=== PATIENT | male | born 1990 | race American Indian/Alaskan Native ===

== ENCOUNTER 2018-07-31 00:14 | Emergency (ER) | payer SELFPAY ==
[2018-07-31 02:42] VITALS: BP 119/77
--- NOTE | 2018-07-31 03:47 | Emergency Department Report ---
Chief Complaint: Urogenital-Male Stated Complaint: PENILE D/C Time Seen by Provider: 07/31/18 03:44 - HPI History of Present Illness: 28-year-old Afro-[place] male presents to the emergency room for complaint of penile discharge 2 days. She denies any fever chills, nausea vomiting, no abdominal pain. Patient port is sexually active unprotected with movement. - ROS Review of Systems: Penile discharge, dysuria - Exam Vital Signs: Vital Signs 07/31/18 02:41 Temperature 97.2 F L Pulse Rate 63 Respiratory 19 Rate Blood Pressure 119/77 O2 Sat by Pulse 99 Oximetry Physical Exam: Alert and oriented 3 no acute distress Cardiovascular S1 and S2 regular rate and rhythm Respiratory clear to auscultation bilateral Abdomen soft nontender nondistended MSE screening note: Focused history and physical exam performed. Due to findings the following was ordered: Patient is referred to the health department for testing and treatment as this is considered a nonmedical emergency examination is within normal limits for stabilization. ED Disposition for MSE Condition: Stable Referrals: PRIMARY CARE, [Primary Care Provider] - 3-5 Days
== END 2018-07-31 03:50 | disposition left against medical advice (07) ==
LOC: ED 00:14
DX: R36.9 Urethral discharge, unspecified (principal); Z53.21 Procedure and treatment not carried out due to patient leaving prior to being seen by health care provider
CPT/HCPCS: 99281

== ENCOUNTER 2019-02-01 02:17 | Emergency (ER) | payer SELFPAY ==
[2019-02-01 02:26] VITALS: BP 118/66
[2019-02-01] MEDS ORDERED: ZOFRAN IV ONE (02:58)
[2019-02-01] MEDS ORDERED: MORPHINE IV ONE (02:58)
[2019-02-01] MEDS ORDERED: NACL 0.9% 1000 ML 1,000 ML IV ONE (02:58)
[2019-02-01 03:02] LABS: Basophils % (Auto) 0.1 % (0.0-1.8); Eosinophils # (Auto) 0.1 K/mm3 (0.0-0.4); Eosinophils % (Auto) 0.9 % (0.0-4.3); Hematocrit 45.4 % (35.5-45.6); Hemoglobin 15.2 gm/dl (11.8-15.2); Lymphocytes # (Auto) 0.6 K/mm3 (1.2-5.4); Lymphocytes % (Auto) 5.5 % (13.4-35.0); Mean Corpuscular HGB Conc 34 % (32-34); Mean Corpuscular Hemoglobin 31 pg (28-32); Mean Corpuscular Volume 93 fl (84-94); Monocytes # (Auto) 0.7 K/mm3 (0.0-0.8); Monocytes % (Auto) 5.9 % (0.0-7.3); Platelet Count 330 K/mm3 (140-440); Red Blood Count 4.88 M/mm3 (3.65-5.03); Red Cell Distribution Width 12.3 % (13.2-15.2)
[2019-02-01 03:32] LABS: Amphetamine Screen,Urine PRESUMPTIVE NEGATIVE; Benzodiazepines Screen,Urine PRESUMPTIVE NEGATIVE; Cannabinoid Screen,Urine PRESUMPTIVE NEGATIVE; Cocaine Screen,Urine PRESUMPTIVE NEGATIVE; Methadone Screen,Urine PRESUMPTIVE NEGATIVE; Opiate Screen,Urine PRESUMPTIVE NEGATIVE
[2019-02-01 03:39] LABS: Bilirubin,Urine NEG (Negative); Blood,Urine NEG (Negative); Color,Urine Amber (Yellow); Mucus,Urine 3+ /HPF
[2019-02-01 03:43] LABS: Alanine Aminotransferase 13 units/L (7-56); Albumin 4.7 g/dL (3.9-5); BUN/Creatinine Ratio 12; Blood Urea Nitrogen 12 mg/dL (9-20); Calcium 9.9 mg/dL (8.4-10.2); Hemolysis Index 8; Lipase 16 units/L (13-60)
[2019-02-01 03:44] LABS: Bilirubin,Direct < 0.2 mg/dL (0-0.2)
--- NOTE | 2019-02-01 04:00 | XRay Report ---
PROCEDURE: XR ABD SERIES W CXR 1V TECHNIQUE: Upright chest radiograph and upright and supine views of the abdomen and pelvis HISTORY: nausea vomiting COMPARISONS: None FINDINGS: No mediastinal shift. Cardiac silhouette is not enlarged. No pneumothorax, effusion, or focal pulmo nary opacity. No pneumoperitoneum. Bowel gas pattern is nonobstructive. No pathologic calcification or fracture. IMPRESSION: No acute findings. This document is electronically signed by Eliseo Jewell MD., February 01 2019 03:58:18 AM ET
--- NOTE | 2019-02-01 04:00 | Emergency Department Report ---
ED N/V/D HPI - General Chief complaint: Nausea/Vomiting/Diarrhea Stated complaint: DIZZINESS/EMESIS Time Seen by Provider: 02/01/19 02:46 Source: patient Mode of arrival: Ambulatory Limitations: No Limitations - History of Present Illness Initial comments: This is a 28-year-old male nontoxic, well nourished in appearance, no acute signs of distress presents to the ED with c/o of nausea and vomiting 1 day. Patient describes vomiting as food content. Patient denies any abdominal pain, chest pain, short of breath, fever, chills, headache, stiff neck, numbness or tingling. Patient stated has some diarrhea. Patient denies any recent travels. Patient denies any drug allergies significant past medical history. MD complaint: nausea, vomiting, diarrhea -: days(s) (1) Description of Vomiting: food contents Description of Diarrhea: water Associated Abdominal Pain: No Radiation: none Pain Scale: 0 Improves with: none Worsens with: none Associated Symptoms: nausea/vomiting. denies: myalgias, chest pain, cough, diaphoresis, fever/chills, headaches, loss of appetite, malaise, rash, dysuria, shortness of breath, syncope, weakness - Related Data Previous Rx's Medication Instructions Recorded Last Taken Type Amoxicillin [Amoxicillin TAB] 875 mg PO BID #20 tablet 10/21/16 Unknown Rx Ibuprofen [Motrin] 600 mg PO Q8H PRN #15 tablet 10/21/16 Unknown Rx Ondansetron [Zofran Odt] 4 mg PO Q8HR PRN #20 tab.rapdis 02/01/19 Unknown Rx Allergies Allergy/AdvReac Type Severity Reaction Status Date / Time pineapple Allergy Swelling Verified 02/01/19 02:28 ED Review of Systems ROS: Stated complaint: DIZZINESS/EMESIS Other details as noted in HPI Constitutional: denies: chills, fever Eyes: denies: eye pain, eye discharge, vision change ENT: denies: ear pain, throat pain Respiratory: denies: cough, shortness of breath, wheezing Cardiovascular: denies: chest pain, palpitations Endocrine: no symptoms reported Gastrointestinal: nausea, vomiting, diarrhea. denies: abdominal pain, constipation Genitourinary: denies: urgency, dysuria Musculoskeletal: denies: back pain, joint swelling, arthralgia Skin: denies: rash, lesions Neurological: denies: headache, weakness, paresthesias Psychiatric: denies: anxiety, depression Hematological/Lymphatic: denies: easy bleeding, easy bruising ED Past Medical Hx - Past Medical History Previous Medical History?: No - Surgical History Past Surgical History?: No - Social History Smoking Status: Never Smoker Substance Use Type: None - Medications Home Medications: Home Medications Medication Instructions Recorded Confirmed Last Taken Type Amoxicillin [Amoxicillin TAB] 875 mg PO BID #20 tablet 10/21/16 Unknown Rx Ibuprofen [Motrin] 600 mg PO Q8H PRN #15 tablet 10/21/16 Unknown Rx Ondansetron [Zofran Odt] 4 mg PO Q8HR PRN #20 tab.rapdis 02/01/19 Unknown Rx ED Physical Exam - General Limitations: No Limitations General appearance: alert, in no apparent distress - Head Head exam: Present: atraumatic, normocephalic - Eye Eye exam: Present: normal appearance - Neck Neck exam: Present: normal inspection, full ROM. Absent: tenderness, meningismus, lymphadenopathy - Respiratory Respiratory exam: Present: normal lung sounds bilaterally. Absent: respiratory distress, wheezes, rales, rhonchi, stridor, chest wall tenderness, accessory muscle use, decreased breath sounds, prolonged expiratory - Cardiovascular Cardiovascular Exam: Present: regular rate, normal rhythm, normal heart sounds. Absent: bradycardia, tachycardia, irregular rhythm, systolic murmur, diastolic murmur, rubs, gallop - GI/Abdominal GI/Abdominal exam: Present: soft, normal bowel sounds. Absent: distended, tenderness, guarding, rebound, rigid, diminished bowel sounds - Expanded GI/Abdominal Exam Expanded GI/Abdominal exam: Absent: psoas sign, Cortes's sign, Rovsing's sign, tenderness at [place]bur[place]'s Point, ascites - Rectal Rectal exam: Present: deferred - Extremities Exam Extremities exam: Present: normal inspection, full ROM - Back Exam Back exam: Present: normal inspection, full ROM. Absent: tenderness, CVA tenderness (R), CVA tenderness (L), muscle spasm, paraspinal tenderness, vertebral tenderness, rash noted - Neurological Exam Neurological exam: Present: alert, oriented X3 - Psychiatric Psychiatric exam: Present: normal affect, normal mood - Skin Skin exam: Present: warm, dry, intact, normal color. Absent: rash ED Course Vital Signs 02/01/19 02:24 Temperature 98.1 F Pulse Rate 90 Respiratory 18 Rate Blood Pressure 118/66 O2 Sat by Pulse 100 Oximetry - Reevaluation(s) Reevaluation #1: 02/01/19 03:59 Patient is speaking in full sentences with no signs of distress noted. ED Medical Decision Making - Lab Data Result diagrams: 02/01/19 02:50 02/01/19 02:50 - Medical Decision Making This is a 28-year-old male that presents with nausea and vomiting. Patient is stable and was examined by me. There is no abdominal tenderness. Negative signs of symptoms of appendicitis. Labs obtained. UA obtained. XR abdomen xray obtained and dictated by the radiologist. Patient is notified of the report with no questions noted by the patient. Vital signs are stable prior to discharge. Patient received Zofran and 1L Normal saline in the ED which patient stated symptoms has resolved and subsided. A by mouth challenge has been obtained and patient tolerated well with no nausea vomiting. Patient was notified of strict precautions of appendicitis symptoms and to return to the ED if symptoms occurs as soon as possible. Patient was also instructed to Follow-up with a primary care doctor in 3-5 days or if symptoms worsen and continue return to emergency room as soon as possible. At time of discharge, the patient does not seem toxic or ill in appearance. No acute signs of distress noted. Patient agrees to discharge treatment plan of care. No further questions noted by the patient. Critical care attestation.: If time is entered above; I have spent that time in minutes in the direct care of this critically ill patient, excluding procedure time. ED Disposition Clinical Impression: Nausea vomiting and diarrhea Disposition: -01 TO HOME OR SELFCARE Is pt being admited?: No Does the pt Need Aspirin: No Condition: Stable Instructions: Acute Nausea and Vomiting (ED) Additional Instructions: Follow-up with a primary care doctor in 3-5 days or if symptoms worsen and continue return to emergency room as soon as possible. Prescriptions: Ondansetron [Zofran Odt] 4 mg PO Q8HR PRN #20 tab.rapdis PRN Reason: Nausea Referrals: [facility] RENETTA [Primary Care Provider] - 3-5 Days PRIMARY CAREMD [Referring] - 3-5 Days ALAYNA CHANG MD [Staff Physician] - 3-5 Days [facility] [Outside] - 3-5 Days [facility] [Outside] - 3-5 Days Forms: Work/School Release Form(ED)
== END 2019-02-01 04:24 | disposition home or self-care (01) ==
LOC: ED 02:17
DX: R11.2 Nausea with vomiting, unspecified (principal); R19.7 Diarrhea, unspecified; Z91.018 Allergy to other foods
CPT/HCPCS: 36415; 74022; 80048; 80076; 80307; 81001; 83690; 85025; 96361; 96374; 99284; J2405; J7030

== ENCOUNTER 2020-02-06 14:38 | Emergency (ER) | payer SELFPAY ==
[2020-02-06 15:11] VITALS: BP 126/73
--- NOTE | 2020-02-06 17:28 | Emergency Department Report ---
Chief Complaint: Urogenital-Male Stated Complaint: PENIS DISCHARGE Time Seen by Provider: 02/06/20 17:22 - HPI History of Present Illness: 29yo M states that he has a penis discharge x 1 month. He states that he has been tested negative for GC and Trichomonas. - ROS Review of Systems: All systems reviewed and negative except - SEE HPI - Exam Vital Signs: Vital Signs 02/06/20 02/06/20 15:08 15:10 Temperature 99.2 F Pulse Rate 84 Respiratory 16 Rate Blood Pressure 126/73 O2 Sat by Pulse 99 Oximetry Physical Exam: General-WNL HEENT-WNL Neck-WNL Lungs WNL Heart-WNL Abdomen-WNL MS-WNL Neuro-WNL Psych-WNL MSE screening note: Focused history and physical exam performed. Due to findings the following was ordered: Pt was explained that his urethritis is no-emergent and he will be MSE screened out. He was given a referral to Urology and told to f/u; see ER as needed. ED Disposition for MSE Condition: Stable Referrals: PRIMARY CARE [Primary Care Provider] - 3-5 Days
== END 2020-02-06 17:35 | disposition left against medical advice (07) ==
LOC: ED 14:38
DX: R36.9 Urethral discharge, unspecified (principal)
CPT/HCPCS: 99282

== ENCOUNTER 2020-02-07 18:03 | Emergency (ER) | payer SELFPAY ==
[2020-02-07 18:31] VITALS: BP 136/88
--- NOTE | 2020-02-07 18:35 | Event Note ---
ED Screening Note ED Screening Note: 20 sexual partners random partners-- over last month now urinating blood pmh none psh none rx none was recently tx for sti 3 weeks no sex since then he got azithro at that time This initial assessment/diagnostic orders/clinical plan/treatment(s) is/are subject to change based on patients health status, clinical progression and re- assessment by fellow clinical providers in the ED. Further treatment and workup at subsequent clinical providers discretion. Patient/guardian urged not to elope from the ED as their condition may be serious if not clinically assessed and managed. Initial orders include: hematuria- not just d/c per pt ro uti/k stone
[2020-02-07 19:22] LABS: Mucus,Urine FEW /HPF
[2020-02-07 19:23] LABS: Bilirubin,Urine NEG (Negative); Blood,Urine NEG (Negative); Color,Urine Yellow (Yellow); Protein,Urine <15 mg/dL mg/dL (Negative); Urobilinogen,Urine < 2.0 mg/dL (<2.0)
--- NOTE | 2020-02-07 19:54 | Ultrasound Report ---
ULTRASOUND SCROTUM INDICATION / CLINICAL INFORMATION: testicular pain; walking with a limp and bent over. COMPARISON: None available. FINDINGS -- RIGHT TESTIS: Size = 4.2 x 2.1 x 3 cm. - Appearance: No significant abnormality. - Cyst or Mass: None. - Color Doppler Flow: No significant abnormality. EPIDIDYMIS: No significant abnormality. HYDROCELE: Tiny, simple, seen next to the epididymal head VARICOCELE: None demonstrated. FINDINGS -- LEFT TESTIS: Size = 4 x 1.9 x 3.1 cm. - Appearance: No significant abnormality. - Cyst or Mass: None. - Color Doppler Flow: No significant abnormality. EPIDIDYMIS: No significant abnormality. HYDROCELE: Small, simple VARICOCELE: None demonstrated. ADDITIONAL FINDINGS: None. IMPRESSION: 1. No acute abnormality. There are very small bilateral hydroceles. Signer Name: Kee Suggs MD Signed: 02/07/2020 7:50 PM Workstation Name: [id number]
[2020-02-07 20:20] LABS: Basophils % (Auto) 0.5 % (0.0-1.8); Eosinophils # (Auto) 0.2 K/mm3 (0.0-0.4); Eosinophils % (Auto) 3.6 % (0.0-4.3); Hemoglobin 14.4 gm/dl (11.8-15.2); Lymphocytes # (Auto) 2.8 K/mm3 (1.2-5.4); Lymphocytes % (Auto) 45.5 % (13.4-35.0); Mean Corpuscular HGB Conc 33 % (32-34); Mean Corpuscular Volume 96 fl (84-94); Monocytes # (Auto) 0.7 K/mm3 (0.0-0.8); Monocytes % (Auto) 10.9 % (0.0-7.3); Platelet Count 281 K/mm3 (140-440); Red Blood Count 4.49 M/mm3 (3.65-5.03); Red Cell Distribution Width 12.9 % (13.2-15.2)
[2020-02-07 21:03] LABS: BUN/Creatinine Ratio 20; Blood Urea Nitrogen 18 mg/dL (9-20); Hemolysis Index 11
--- NOTE | 2020-02-07 21:09 | Emergency Department Report ---
ED General Adult HPI - General Chief complaint: Urogenital-Male Stated complaint: BLOOD IN URINE Time Seen by Provider: 02/07/20 18:32 Source: patient, RN notes reviewed, old records reviewed Mode of arrival: Ambulatory Limitations: No Limitations - History of Present Illness Initial comments: During the entire history and physical examination, I am chaperoned by ER remote sensing technician Valarie Gallegos The patient is a 29-year-old gentleman who is not known to myself previously. He denies fever, cough and coronavirus exposure. He presents to the ER today wi th a complaint of 3weeks penile discharge, and today, blood with urination/penile discharge. He is not having physical pain. He was seen for the symptoms 3 weeks ago at an outpatient clinic or health care center, and was reportedly given antibiotics. He denies headache, neck pain, chest pain, abd ominal pain, shortness of breath, testicular pain, and he currently denies dysuria. He has no physical pain at this time. When I walked into the room to examine the patient, he has a bag of fast food with him, and he is engaged in an animated cell phone discussion. -: week(s) Consistency: constant Improves with: none Worsens with: none - Related Data Previous Rx's Medication Instructions Recorded Last Taken Type Amoxicillin [Amoxicillin TAB] 875 mg PO BID #20 tablet 10/21/16 Unknown Rx Ibuprofen [Motrin] 600 mg PO Q8H PRN #15 tablet 10/21/16 Unknown Rx Ondansetron [Zofran Odt] 4 mg PO Q8HR PRN #20 tab.rapdis 02/01/19 Unknown Rx Allergies Allergy/AdvReac Type Severity Reaction Status Date / Time pineapple Allergy Swelling Verified 02/07/20 18:28 ED Review of Systems ROS: Stated complaint: BLOOD IN URINE Other details as noted in HPI Constitutional: denies: fever Eyes: denies: eye discharge ENT: denies: congestion Respiratory: denies: wheezing Cardiovascular: denies: syncope Gastrointestinal: abdominal pain Genitourinary: hematuria, discharge. denies: testicular pain, testicular mass Musculoskeletal: denies: back pain Skin: as per HPI Neurological: as per HPI Psychiatric: as per HPI Hematological/Lymphatic: as per HPI ED Past Medical Hx - Past Medical History Previous Medical History?: No - Surgical History Past Surgical History?: No - Social History Smoking Status: Never Smoker Substance Use Type: None - Medications Home Medications: Home Medications Medication Instructions Recorded Confirmed Last Taken Type Amoxicillin [Amoxicillin TAB] 875 mg PO BID #20 tablet 10/21/16 Unknown Rx Ibuprofen [Motrin] 600 mg PO Q8H PRN #15 tablet 10/21/16 Unknown Rx Ondansetron [Zofran Odt] 4 mg PO Q8HR PRN #20 tab.rapdis 02/01/19 Unknown Rx ED Physical Exam - General Limitations: No Limitations General appearance: alert, in no apparent distress - Head Head exam: Present: atraumatic, normocephalic - Eye Eye exam: Present: normal appearance, EOMI. Absent: nystagmus - ENT ENT exam: Present: normal exam, normal orophraynx, mucous membranes moist, normal external ear exam - Neck Neck exam: Present: normal inspection, full ROM. Absent: tenderness, meningismus - Respiratory Respiratory exam: Present: normal lung sounds bilaterally. Absent: respiratory distress - Cardiovascular Cardiovascular Exam: Present: regular rate, normal rhythm, normal heart sounds. Absent: bradycardia, tachycardia, irregular rhythm, systolic murmur, diastolic murmur, rubs, gallop - GI/Abdominal GI/Abdominal exam: Present: soft, normal bowel sounds. Absent: distended, ten derness, guarding, rebound, rigid - Rectal Rectal exam: Present: deferred - exam: Present: normal inspection, other (There is normal testicular lie. There is normal cremasteric reflex. There is no testicular tenderness. There is no testicular swelling). Absent: testicular tenderness External exam: Present: normal external exam, other (Chaperoned by Valarie Gray) - Extremities Exam Extremities exam: Present: normal inspection, full ROM, other (2+ pulses noted in the bilateral upper and lower extremities. There is no palpable cord. negative Homans sign. Muscular compartments are soft. The pelvis is stable.). Absent: pedal edema, calf tenderness - Back Exam Back exam: Present: normal inspection, full ROM. Absent: tenderness, CVA tenderness (R), CVA tenderness (L), paraspinal tenderness, vertebral tenderness - Neurological Exam Neurological exam: Present: alert, normal gait, other (There is no facial droop. The tongue is midline. Extraocular movements are intact bilaterally. There is 5 out of 5 strength in bilateral upper and lower extremities. Sensation is intact to light touch bilateral upper and lower extremities. There is a normal gait.) - Psychiatric Psychiatric exam: Present: normal affect, normal mood - Skin Skin exam: Present: warm, dry, intact, normal color. Absent: rash ED Course Vital Signs 02/07/20 18:29 Temperature 98.7 F Pulse Rate 72 Respiratory 18 Rate Blood Pressure 136/88 O2 Sat by Pulse 98 Oximetry ED Medical Decision Making - Lab Data Result diagrams: 02/07/20 19:35 02/07/20 19:35 Vital Signs 02/07/20 18:29 Temperature 98.7 F Pulse Rate 72 Respiratory 18 Rate Blood Pressure 136/88 O2 Sat by Pulse 98 Oximetry Lab Results 02/07/20 02/07/20 02/07/20 Range/Units 19:35 19:35 Unknown WBC 6.1 (4.5-11.0) K/mm3 RBC 4.49 (3.65-5.03) M/mm3 Hgb 14.4 (11.8-15.2) gm/dl Hct 43.0 (35.5-45.6) % MCV 96 H (84-94) fl MCH 32 (28-32) pg MCHC 33 (32-34) % RDW 12.9 L (13.2-15.2) % Plt Count 281 (140-440) K/mm3 Lymph % (Auto) 45.5 H (13.4-35.0) % [place] % (Auto) 10.9 H (0.0-7.3) % Eos % (Auto) 3.6 (0.0-4.3) % Baso % (Auto) 0.5 (0.0-1.8) % Lymph # 2.8 (1.2-5.4) K/mm3 [place] # 0.7 (0.0-0.8) K/mm3 Eos # 0.2 (0.0-0.4) K/mm3 Baso # 0.0 (0.0-0.1) K/mm3 Seg Neutrophils % 39.5 L (40.0-70.0) % Seg Neutrophils # 2.4 (1.8-7.7) K/mm3 Sodium 138 (137-145) mmol/L Potassium 4.3 (3.6-5.0) mmol/L Chloride 101.3 (98-107) mmol/L Carbon Dioxide 21 L (22-30) mmol/L Anion Gap 20 mmol/L BUN 18 (9-20) mg/dL Creatinine 0.9 (0.8-1.5) mg/dL Estimated GFR > 60 ml/min BUN/Creatinine Ratio 20 % Glucose 93 (75-100) mg/dL Calcium 10.0 (8.4-10.2) mg/dL Urine Color Yellow (Yellow) Urine Turbidity Clear (Clear) Urine pH 7.0 (5.0-7.0) Ur Specific [place] 1.021 (1.003-1.030) Urine Protein <15 mg/dl (Negative) mg/dL Urine Glucose (UA) Neg (Negative) mg/dL Urine Ketones Neg (Negative) mg/dL Urine Blood Neg (Negative) Urine Nitrite Neg (Negative) Ur Reducing Substances Not Reportable Urine Bilirubin Neg (Negative) Urine Ictotest Not Reportable Urine Urobilinogen < 2.0 (<2.0) mg/dL Ur Leukocyte Esterase Neg (Negative) Urine WBC (Auto) 11.0 H (0.0-6.0) /HPF Urine RBC (Auto) 3.0 (0.0-6.0) /HPF U Epithel Cells (Auto) < 1.0 (0-13.0) /HPF Urine Mucus Few /HPF - Radiology Data Radiology results: report reviewed, image reviewed Testicular ultrasound negative for acute disease - Medical Decision Making Differential diagnosis, including but not limited to: Urethritis, cystitis, malignancy Assessment and plan: 29-year-old gentleman complaining of 3 weeks urethral discharge, and hematuria x1 day. He is not having physical pain. He is afebrile with reassuring vital signs. His physical exam is benign and within normal limits. He has a benign genital exam. There is no clinical evidence at this time of cellulitis, epididymitis, orchitis or torsion. There is no suprapubic tenderness. He was reportedly treated empirically for STI 3 weeks ago by his history. The patient had laboratory studies and ultrasound ordered prior to my personal evaluation. They are unremarkable. The patient does not appear to have an michael rgent medical condition at this time. He can follow-up with an outpatient primary care doctor or a urologist for his complaint of penile discharge and hematuria. We discussed the need for safe sex practices. He also reports that he had outpatient cultures ordered a few weeks ago, which were negative for gonorrhea, chlamydia, HIV. Critical care attestation.: If time is entered above; I have spent that time in minutes in the direct care of this critically ill patient, excluding procedure time. ED Disposition Clinical Impression: History of hematuria, History of penile discharge Disposition: TO HOME OR SELFCARE Is pt being admited?: No Does the pt Need Aspirin: No Condition: Stable Additional Instructions: Always practice safe sex with condoms/barrier protection. Recommend abstinence from sexual activity until cleared to do so by a primary care doctor or urologist. Recommend follow-up with an outpatient primary care doctor or urologist within the next 2 weeks. Cultures were sent today, and results will be available in the next 3 to 5 days. Please have your primary care doctor or urologist contact the medical records department to obtain culture results. Please return to the emergency room right away with new, worsened or different symptoms, or symptoms not present on the initial emergency room evaluation. Referrals: BRENDA RAMSEY MD [Staff Physician] - as needed ZAINAB LOCKETT MD [Staff Physician] - as needed
== END 2020-02-07 21:15 | disposition home or self-care (01) ==
LOC: ED 18:03
DX: R31.9 Hematuria, unspecified (principal); R36.9 Urethral discharge, unspecified; Z79.899 Other long term (current) drug therapy; Z91.018 Allergy to other foods
CPT/HCPCS: 36415; 80048; 81001; 85025; 87086; 93975

== ENCOUNTER 2020-02-19 21:01 | Emergency (ER) | payer SELFPAY ==
[2020-02-19 21:25] VITALS: BP 151/83
== END 2020-02-19 23:58 | disposition left against medical advice (07) ==
LOC: ED 21:01
DX: R36.9 Urethral discharge, unspecified (principal); Z53.21 Procedure and treatment not carried out due to patient leaving prior to being seen by health care provider

== ENCOUNTER 2020-03-09 19:09 | Emergency (ER) | payer SELFPAY ==
[2020-03-09 19:51] VITALS: BP 138/91
--- NOTE | 2020-03-09 20:14 | Emergency Department Report ---
ED Psych HPI - General Chief Complaint: Psych Stated Complaint: MH EVAL Time Seen by Provider: 03/09/20 20:04 Source: patient Mode of arrival: Ambulatory - History of Present Illness Initial Comments: Patient is a 29-year-old F [place] male with a past medical history of schizop hrenia who is noncompliant with medications he states last night he was having auditory hallucinations. Patient states he does not feel as though he is going to kill himself however of these were demonic demand hallucinations. Patient is still very paranoid as well and was believing that someone was out to kill him. Patient states that he was having a difficult time coping and came to the emerg ency department for help. - Related Data Previous Rx's Medication Instructions Recorded Last Taken Type Amoxicillin [Amoxicillin TAB] 875 mg PO BID #20 tablet 10/21/16 Unknown Rx Ibuprofen [Motrin] 600 mg PO Q8H PRN #15 tablet 10/21/16 Unknown Rx Ondansetron [Zofran Odt] 4 mg PO Q8HR PRN #20 tab.rapdis 02/01/19 Unknown Rx Allergies Allergy/AdvReac Type Severity Reaction Status Date / Time pineapple Allergy Swelling Verified 03/09/20 19:43 ED Review of Systems ROS: Stated complaint: MH EVAL Other details as noted in HPI Comment: All other systems reviewed and negative ED Past Medical Hx - Past Medical History Hx Psychiatric Treatment: Yes (Paronoid Schizophrenia, Anxiety) - Surgical History Past Surgical History?: No - Social History Smoking Status: Never Smoker Substance Use Type: Alcohol, Marijuana - Medications Home Medications: Home Medications Medication Instructions Recorded Confirmed Last Taken Type Amoxicillin [Amoxicillin TAB] 875 mg PO BID #20 tablet 10/21/16 Unknown Rx Ibuprofen [Motrin] 600 mg PO Q8H PRN #15 tablet 10/21/16 Unknown Rx Ondansetron [Zofran Odt] 4 mg PO Q8HR PRN #20 tab.rapdis 02/01/19 Unknown Rx ED Physical Exam - General Limitations: No Limitations General appearance: alert, in no apparent distress - Head Head exam: Present: atraumatic, normocephalic - Eye Eye exam: Present: normal appearance - ENT ENT exam: Present: mucous membranes moist - Neck Neck exam: Present: normal inspection - Respiratory Respiratory exam: Present: normal lung sounds bilaterally. Absent: respiratory distress, wheezes, rales, rhonchi - Cardiovascular Cardiovascular Exam: Present: regular rate, normal rhythm. Absent: systolic murmur, diastolic murmur, rubs, gallop - GI/Abdominal GI/Abdominal exam: Present: soft, normal bowel sounds - Rectal Rectal exam: Present: deferred - Extremities Exam Extremities exam: Present: normal inspection - Back Exam Back exam: Present: normal inspection - Neurological Exam Neurological exam: Present: alert, oriented X3 - Psychiatric Psychiatric exam: Present: normal affect, normal mood, other (paranoia) - Skin Skin exam: Present: warm, dry, intact, normal color. Absent: rash ED Course Vital Signs 03/09/20 19:47 Temperature 98.4 F Pulse Rate 79 Respiratory 18 Rate Blood Pressure 138/91 O2 Sat by Pulse 100 Oximetry - Reevaluation(s) Reevaluation #1: 03/09/20 21:04 Patient became very paranoid and stated that he no longer felt safe here and attempted to elope. We will attempt to redirect the patient back to the room and if the patient does elope authorities will be notified to perform a safety check 03/09/20 21:05 03/09/20 21:13 ED Medical Decision Making - Lab Data Result diagrams: 03/09/20 20:07 03/09/20 20:07 Lab Results 03/09/20 03/09/20 03/09/20 Range/Units 20:07 20:07 20:07 WBC (4.5-11.0) K/mm3 RBC (3.65-5.03) M/mm3 Hgb (11.8-15.2) gm/dl Hct (35.5-45.6) % MCV (84-94) fl MCH (28-32) pg MCHC (32-34) % RDW (13.2-15.2) % Plt Count (140-440) K/mm3 Sodium 140 (137-145) mmol/L Potassium 3.8 (3.6-5.0) mmol/L Chloride 100.2 (98-107) mmol/L Carbon Dioxide 27 (22-30) mmol/L Anion Gap 17 mmol/L BUN 10 (9-20) mg/dL Creatinine 0.9 (0.8-1.5) mg/dL Estimated GFR > 60 ml/min BUN/Creatinine Ratio 11 % Glucose 89 (75-100) mg/dL Calcium 10.0 (8.4-10.2) mg/dL Urine Color (Yellow) Urine Turbidity (Clear) Urine pH (5.0-7.0) Ur Specific [place] (1.003-1.030) Urine Protein (Negative) mg/dL Urine Glucose (UA) (Negative) mg/dL Urine Ketones (Negative) mg/dL Urine Blood (Negative) Urine Nitrite (Negative) Urine Bilirubin (Negative) Urine Urobilinogen (<2.0) mg/dL Ur Leukocyte Esterase (Negative) Urine WBC (Auto) (0.0-6.0) /HPF Urine RBC (Auto) (0.0-6.0) /HPF Urine Bacteria (Auto) (Negative) /HPF Urine Mucus /HPF Salicylates < 0.3 L (2.8-20.0) mg/dL Urine Opiates Screen Urine Methadone Screen Acetaminophen < 5.0 L (10.0-30.0) ug/mL Ur Barbiturates Screen Ur Phencyclidine Scrn Ur Amphetamines Screen U Benzodiazepines Scrn Urine Cocaine Screen U Marijuana (THC) Screen Drugs of Abuse Note Plasma/Serum Alcohol (0-0.07) % 03/09/20 03/09/20 03/09/20 Range/Units 20:07 20:07 Unknown WBC 7.2 (4.5-11.0) K/mm3 RBC 4.79 (3.65-5.03) M/mm3 Hgb 15.2 (11.8-15.2) gm/dl Hct 45.2 (35.5-45.6) % MCV 94 (84-94) fl MCH 32 (28-32) pg MCHC 34 (32-34) % RDW 12.5 L (13.2-15.2) % Plt Count 327 (140-440) K/mm3 Sodium (137-145) mmol/L Potassium (3.6-5.0) mmol/L Chloride (98-107) mmol/L Carbon Dioxide (22-30) mmol/L Anion Gap mmol/L BUN (9-20) mg/dL Creatinine (0.8-1.5) mg/dL Estimated GFR ml/min BUN/Creatinine Ratio % Glucose (75-100) mg/dL Calcium (8.4-10.2) mg/dL Urine Color Kristal (Yellow) Urine Turbidity Clear (Clear) Urine pH 6.0 (5.0-7.0) Ur Specific [place] 1.034 H (1.003-1.030) Urine Protein 30 mg/dl (Negative) mg/dL Urine Glucose (UA) Neg (Negative) mg/dL Urine Ketones 20 (Negative) mg/dL Urine Blood Neg (Negative) Urine Nitrite Neg (Negative) Urine Bilirubin Neg (Negative) Urine Urobilinogen 2.0 (<2.0) mg/dL Ur Leukocyte Esterase Neg (Negative) Urine WBC (Auto) 4.0 (0.0-6.0) /HPF Urine RBC (Auto) 3.0 (0.0-6.0) /HPF Urine Bacteria (Auto) 1+ (Negative) /HPF Urine Mucus 3+ /HPF Salicylates (2.8-20.0) mg/dL Urine Opiates Screen Urine Methadone Screen Acetaminophen (10.0-30.0) ug/mL Ur Barbiturates Screen Ur Phencyclidine Scrn Ur Amphetamines Screen U Benzodiazepines Scrn Urine Cocaine Screen U Marijuana (THC) Screen Drugs of Abuse Note Plasma/Serum Alcohol < 0.01 (0-0.07) % 03/09/20 Range/Units Unknown WBC (4.5-11.0) K/mm3 RBC (3.65-5.03) M/mm3 Hgb (11.8-15.2) gm/dl Hct (35.5-45.6) % MCV (84-94) fl MCH (28-32) pg MCHC (32-34) % RDW (13.2-15.2) % Plt Count (140-440) K/mm3 Sodium (137-145) mmol/L Potassium (3.6-5.0) mmol/L Chloride (98-107) mmol/L Carbon Dioxide (22-30) mmol/L Anion Gap mmol/L BUN (9-20) mg/dL Creatinine (0.8-1.5) mg/dL Estimated GFR ml/min BUN/Creatinine Ratio % Glucose (75-100) mg/dL Calcium (8.4-10.2) mg/dL Urine Color (Yellow) Urine Turbidity (Clear) Urine pH (5.0-7.0) Ur Specific [place] (1.003-1.030) Urine Protein (Negative) mg/dL Urine Glucose (UA) (Negative) mg/dL Urine Ketones (Negative) mg/dL Urine Blood (Negative) Urine Nitrite (Negative) Urine Bilirubin (Negative) Urine Urobilinogen (<2.0) mg/dL Ur Leukocyte Esterase (Negative) Urine WBC (Auto) (0.0-6.0) /HPF Urine RBC (Auto) (0.0-6.0) /HPF Urine Bacteria (Auto) (Negative) /HPF Urine Mucus /HPF Salicylates (2.8-20.0) mg/dL Urine Opiates Screen Presumptive negative Urine Methadone Screen Presumptive negative Acetaminophen (10.0-30.0) ug/mL Ur Barbiturates Screen Presumptive negative Ur Phencyclidine Scrn Presumptive negative Ur Amphetamines Screen Presumptive negative U Benzodiazepines Scrn Presumptive negative Urine Cocaine Screen Presumptive negative U Marijuana (THC) Screen Presumptive positive Drugs of Abuse Note Disclamer Plasma/Serum Alcohol (0-0.07) % - Medical Decision Making Patient eloped from the emergency department 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 Patient again was not homicidal suicidal. Critical care attestation.: If time is entered above; I have spent that time in minutes in the direct care of this critically ill patient, excluding procedure time. ED Disposition Clinical Impression: Paranoid schizophrenia Disposition: ELOPED Is pt being admited?: No Does the pt Need Aspirin: No Condition: Stable Referrals: WILBERTO DELEON MD [Primary Care Provider] - 3-5 Days Time of Disposition: 22:03
[2020-03-09 20:18] LABS: Bacteria,Urine 1+ /HPF (Negative); Bilirubin,Urine NEG (Negative); Blood,Urine NEG (Negative); Color,Urine Amber (Yellow); Mucus,Urine 3+ /HPF
[2020-03-09 20:24] LABS: Amphetamine Screen,Urine PRESUMPTIVE NEGATIVE; Benzodiazepines Screen,Urine PRESUMPTIVE NEGATIVE; Cocaine Screen,Urine PRESUMPTIVE NEGATIVE; Methadone Screen,Urine PRESUMPTIVE NEGATIVE; Opiate Screen,Urine PRESUMPTIVE NEGATIVE
[2020-03-09 20:26] LABS: Hematocrit 45.2 % (35.5-45.6); Hemoglobin 15.2 gm/dl (11.8-15.2); Mean Corpuscular HGB Conc 34 % (32-34); Mean Corpuscular Volume 94 fl (84-94); Platelet Count 327 K/mm3 (140-440); Red Blood Count 4.79 M/mm3 (3.65-5.03); Red Cell Distribution Width 12.5 % (13.2-15.2)
[2020-03-09 20:37] LABS: Cannabinoid Screen,Urine PRESUMPTIVE POSITIVE
[2020-03-09 20:42] LABS: BUN/Creatinine Ratio 11; Blood Urea Nitrogen 10 mg/dL (9-20); Hemolysis Index 8
[2020-03-09 21:20] LABS: Basophils % (Manual) 0 % (0.0-1.8); Total Cells Counted 100
[2020-03-09 21:21] LABS: Anisocytosis Few; Large Platelets Few; Platelet Estimate Consistent w Auto
== END 2020-03-09 21:15 | disposition left against medical advice (07) ==
LOC: ED 19:09
DX: F20.0 Paranoid schizophrenia (principal); F41.9 Anxiety disorder, unspecified; F14.10 Cocaine abuse, uncomplicated; Z79.899 Other long term (current) drug therapy
CPT/HCPCS: 36415; 80048; 80307; 80320; 81001; 85007; 85025; G0480

== ENCOUNTER 2020-03-10 01:38 | Emergency (ER) | payer SELFPAY ==
--- NOTE | 2020-03-10 02:39 | Emergency Department Report ---
Blank Doc - Documentation Documentation: Patient eloped several hours ago but has returned because he is still paranoid and believes people are out to hurt him. Psych Patient Name: JUSTINO HENNING Date of : 89 Patient Status: Emergency Emergency Provider: BALJIT CAMPBELL Date: 03/09/20 20:12 Initialization Date: 03/09/20 20:12 ED Psych HPI - General Chief Complaint: Psych Stated Complaint: MH EVAL Time Seen by Provider: 03/09/20 20:04 Source: patient Mode of arrival: Ambulatory - History of Present Illness Initial Comments: Patient is a 29-year-old F [place] male with a past medical history of schizophrenia who is noncompliant with medications he states last night he was having auditory hallucinations. Patient states he does not feel as though he is going to kill himself however of these were demonic demand hallucinations. Patient is still very paranoid as well and was believing that someone was out to kill him. Patient states that he was having a difficult time coping and came to the emergency department for help. - Related Data Previous Rx's Medication Instructions Recorded Last Taken Type Amoxicillin [Amoxicillin TAB] 875 mg PO BID #20 tablet 10/21/16 Unknown Rx Ibuprofen [Motrin] 600 mg PO Q8H PRN #15 tablet 10/21/16 Unknown Rx Ondansetron [Zofran Odt] 4 mg PO Q8HR PRN #20 tab.rapdis 02/01/19 Unknown Rx Allergies Allergy/AdvReac Type Severity Reaction Status Date / Time pineapple Allergy Swelling Verified 03/09/20 19:43 ED Review of Systems ROS: Stated complaint: MH EVAL Other details as noted in HPI Comment: All other systems reviewed and negative ED Past Medical Hx - Past Medical History Hx Psychiatric Treatment: Yes (Paronoid Schizophrenia, Anxiety) - Surgical History Past Surgical History?: No - Social History Smoking Status: Never Smoker Substance Use Type: Alcohol, Marijuana - Medications Home Medications: Home Medications Medication Instructions Recorded Confirmed Last Taken Type Amoxicillin [Amoxicillin TAB] 875 mg PO BID #20 tablet 10/21/16 Unknown Rx Ibuprofen [Motrin] 600 mg PO Q8H PRN #15 tablet 10/21/16 Unknown Rx Ondansetron [Zofran Odt] 4 mg PO Q8HR PRN #20 tab.rapdis 02/01/19 Unknown Rx ED Physical Exam - General Limitations: No Limitations General appearance: alert, in no apparent distress - Head Head exam: Present: atraumatic, normocephalic - Eye Eye exam: Present: normal appearance - ENT ENT exam: Present: mucous membranes moist - Neck Neck exam: Present: normal inspection - Respiratory Respiratory exam: Present: normal lung sounds bilaterally. Absent: respiratory distress, wheezes, rales, rhonchi - Cardiovascular Cardiovascular Exam: Present: regular rate, normal rhythm. Absent: systolic murmur, diastolic murmur, rubs, gallop - GI/Abdominal GI/Abdominal exam: Present: soft, normal bowel sounds - Rectal Rectal exam: Present: deferred - Extremities Exam Extremities exam: Present: normal inspection - Back Exam Back exam: Present: normal inspection - Neurological Exam Neurological exam: Present: alert, oriented X3 - Psychiatric Psychiatric exam: Present: normal affect, normal mood, other (paranoia) - Skin Skin exam: Present: warm, dry, intact, normal color. Absent: rash ED Course Vital Signs 03/09/20 19:47 Temperature 98.4 F Pulse Rate 79 Respiratory 18 Rate Blood Pressure 138/91 O2 Sat by Pulse 100 Oximetry - Reevaluation(s) Reevaluation #1: 03/09/20 21:04 Patient became very paranoid and stated that he no longer felt safe here and attempted to elope. We will attempt to redirect the patient back to the room and if the patient does elope authorities will be notified to perform a safety check 03/09/20 21:05 03/09/20 21:13 ED Medical Decision Making - Lab Data Result diagrams: 03/09/20 20:07 [Image 0] 03/09/20 20:07 [Image 1] Lab Results 03/09/20 03/09/20 03/09/20 Range/Units 20:07 20:07 20:07 WBC (4.5-11.0) K/mm3 RBC (3.65-5.03) M/mm3 Hgb (11.8-15.2) gm/dl Hct (35.5-45.6) % MCV (84-94) fl MCH (28-32) pg MCHC (32-34) % RDW (13.2-15.2) % Plt Count (140-440) K/mm3 Sodium 140 (137-145) mmol/L Potassium 3.8 (3.6-5.0) mmol/L Chloride 100.2 (98-107) mmol/L Carbon Dioxide 27 (22-30) mmol/L Anion Gap 17 mmol/L BUN 10 (9-20) mg/dL Creatinine 0.9 (0.8-1.5) mg/dL Estimated GFR > 60 ml/min BUN/Creatinine Ratio 11 % Glucose 89 (75-100) mg/dL Calcium 10.0 (8.4-10.2) mg/dL Urine Color (Yellow) Urine Turbidity (Clear) Urine pH (5.0-7.0) Ur Specific [place] (1.003-1.030) Urine Protein (Negative) mg/dL Urine Glucose (UA) (Negative) mg/dL Urine Ketones (Negative) mg/dL Urine Blood (Negative) Urine Nitrite (Negative) Urine Bilirubin (Negative) Urine Urobilinogen (<2.0) mg/dL Ur Leukocyte Esterase (Negative) Urine WBC (Auto) (0.0-6.0) /HPF Urine RBC (Auto) (0.0-6.0) /HPF Urine Bacteria (Auto) (Negative) /HPF Urine Mucus /HPF Salicylates < 0.3 L (2.8-20.0) mg/dL Urine Opiates Screen Urine Methadone Screen Acetaminophen < 5.0 L (10.0-30.0) ug/mL Ur Barbiturates Screen Ur Phencyclidine Scrn Ur Amphetamines Screen U Benzodiazepines Scrn Urine Cocaine Screen U Marijuana (THC) Screen Drugs of Abuse Note Plasma/Serum Alcohol (0-0.07) % 03/09/20 03/09/20 03/09/20 Range/Units 20:07 20:07 Unknown WBC 7.2 (4.5-11.0) K/mm3 RBC 4.79 (3.65-5.03) M/mm3 Hgb 15.2 (11.8-15.2) gm/dl Hct 45.2 (35.5-45.6) % MCV 94 (84-94) fl MCH 32 (28-32) pg MCHC 34 (32-34) % RDW 12.5 L (13.2-15.2) % Plt Count 327 (140-440) K/mm3 Sodium (137-145) mmol/L Potassium (3.6-5.0) mmol/L Chloride (98-107) mmol/L Carbon Dioxide (22-30) mmol/L Anion Gap mmol/L BUN (9-20) mg/dL Creatinine (0.8-1.5) mg/dL Estimated GFR ml/min BUN/Creatinine Ratio % Glucose (75-100) mg/dL Calcium (8.4-10.2) mg/dL Urine Color Kristal (Yellow) Urine Turbidity Clear (Clear) Urine pH 6.0 (5.0-7.0) Ur Specific [place] 1.034 H (1.003-1.030) Urine Protein 30 mg/dl (Negative) mg/dL Urine Glucose (UA) Neg (Negative) mg/dL Urine Ketones 20 (Negative) mg/dL Urine Blood Neg (Negative) Urine Nitrite Neg (Negative) Urine Bilirubin Neg (Negative) Urine Urobilinogen 2.0 (<2.0) mg/dL Ur Leukocyte Esterase Neg (Negative) Urine WBC (Auto) 4.0 (0.0-6.0) /HPF Urine RBC (Auto) 3.0 (0.0-6.0) /HPF Urine Bacteria (Auto) 1+ (Negative) /HPF Urine Mucus 3+ /HPF Salicylates (2.8-20.0) mg/dL Urine Opiates Screen Urine Methadone Screen Acetaminophen (10.0-30.0) ug/mL Ur Barbiturates Screen Ur Phencyclidine Scrn Ur Amphetamines Screen U Benzodiazepines Scrn Urine Cocaine Screen U Marijuana (THC) Screen Drugs of Abuse Note Plasma/Serum Alcohol < 0.01 (0-0.07) % 03/09/20 Range/Units Unknown WBC (4.5-11.0) K/mm3 RBC (3.65-5.03) M/mm3 Hgb (11.8-15.2) gm/dl Hct (35.5-45.6) % MCV (84-94) fl MCH (28-32) pg MCHC (32-34) % RDW (13.2-15.2) % Plt Count (140-440) K/mm3 Sodium (137-145) mmol/L Potassium (3.6-5.0) mmol/L Chloride (98-107) mmol/L Carbon Dioxide (22-30) mmol/L Anion Gap mmol/L BUN (9-20) mg/dL Creatinine (0.8-1.5) mg/dL Estimated GFR ml/min BUN/Creatinine Ratio % Glucose (75-100) mg/dL Calcium (8.4-10.2) mg/dL Urine Color (Yellow) Urine Turbidity (Clear) Urine pH (5.0-7.0) Ur Specific [place] (1.003-1.030) Urine Protein (Negative) mg/dL Urine Glucose (UA) (Negative) mg/dL Urine Ketones (Negative) mg/dL Urine Blood (Negative) Urine Nitrite (Negative) Urine Bilirubin (Negative) Urine Urobilinogen (<2.0) mg/dL Ur Leukocyte Esterase (Negative) Urine WBC (Auto) (0.0-6.0) /HPF Urine RBC (Auto) (0.0-6.0) /HPF Urine Bacteria (Auto) (Negative) /HPF Urine Mucus /HPF Salicylates (2.8-20.0) mg/dL Urine Opiates Screen Presumptive negative Urine Methadone Screen Presumptive negative Acetaminophen (10.0-30.0) ug/mL Ur Barbiturates Screen Presumptive negative Ur Phencyclidine Scrn Presumptive negative Ur Amphetamines Screen Presumptive negative U Benzodiazepines Scrn Presumptive negative Urine Cocaine Screen Presumptive negative U Marijuana (THC) Screen Presumptive positive Drugs of Abuse Note Disclamer Plasma/Serum Alcohol (0-0.07) % - Medical Decision Making Patient 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 Patient again was not homicidal suicidal. Critical care attestation.: If time is entered above; I have spent that time in minutes in the direct care of this critically ill patient, excluding procedure time. [id number] Patient is medically cleared at this time and is waiting for assessment <BALJIT CAMPBELL - Last Filed: 03/10/20 02:56> - Documentation Documentation: mental health assessed patient and deemed not a candidate for inpatient treatment. Patient provided outpatient resources and will be discharged per mental health evaluation. <GOMEZ MOORE - Last Filed: 03/10/20 10:09>
[2020-03-10 09:02] VITALS: BP 130/87
== END 2020-03-10 10:30 | disposition home or self-care (01) ==
LOC: ED 01:38
DX: F20.9 Schizophrenia, unspecified (principal)
CPT/HCPCS: 99283

== ENCOUNTER 2020-09-08 00:34 | Emergency (ER) | payer SELFPAY ==
[2020-09-08 01:22] VITALS: BP 134/86
[2020-09-08] MEDS ORDERED: HYDROcodone/ACETAMINOPHEN 5-325 MG TAB PO ONE (03:44)
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
== END 2020-09-08 04:52 | disposition home or self-care (01) ==
LOC: ED 00:34
DX: M62.838 Other muscle spasm (principal); F25.0 Schizoaffective disorder, bipolar type; F41.9 Anxiety disorder, unspecified; Z79.899 Other long term (current) drug therapy; V49.49XA Driver injured in collision with other motor vehicles in traffic accident, initial encounter; Y93.89 Activity, other specified; Y92.488 Other paved roadways as the place of occurrence of the external cause; Y99.8 Other external cause status
CPT/HCPCS: 99282

== ENCOUNTER 2021-04-18 01:06 | Emergency (ER) | payer SELFPAY ==
[2021-04-18 01:57] LABS: Basophils % (Auto) 0.3 % (0.0-1.8); Eosinophils # (Auto) 0.1 K/mm3 (0.0-0.4); Hematocrit 42.1 % (35.5-45.6); Hemoglobin 14.1 gm/dl (11.8-15.2); Lymphocytes # (Auto) 3.2 K/mm3 (1.2-5.4); Lymphocytes % (Auto) 51.3 % (13.4-35.0); Mean Corpuscular HGB Conc 34 % (32-34); Mean Corpuscular Volume 94 fl (84-94); Monocytes # (Auto) 0.6 K/mm3 (0.0-0.8); Monocytes % (Auto) 10.3 % (0.0-7.3); Platelet Count 328 K/mm3 (140-440); Red Blood Count 4.49 M/mm3 (3.65-5.03); Red Cell Distribution Width 12.3 % (13.2-15.2)
[2021-04-18 02:11] LABS: Alanine Aminotransferase 10 units/L (7-56); Albumin 4.8 g/dL (3.9-5); BUN/Creatinine Ratio 11; Blood Urea Nitrogen 9 mg/dL (9-20); Calcium 9.8 mg/dL (8.4-10.2); Hemolysis Index 14
--- NOTE | 2021-04-18 04:35 | Emergency Department Report ---
HPI - HPI HPI: Room 5 The patient is a 31-year-old male present with a chief complaint of suicidal ideation. Patient has a history of schizophrenia states for 1 day he has had suicidal ideation. Patient denies any actual attempts at harming himself or having a plan. <KARL DURÁN - Last Filed: 04/18/21 04:32> <BALJIT CAMPBELL - Last Filed: 04/18/21 13:11> - General Chief Complaint: Psych ED Past Medical Hx - Past Medical History Previous Medical History?: No Hx Psychiatric Treatment: Yes (Paronoid Schizophrenia, Anxiety) - Surgical History Past Surgical History?: No - Family History Family history: no significant - Social History Smoking Status: Never Smoker Substance Use Type: None (Denies illicit drug), Alcohol (Occasional) <KARL DURÁN - Last Filed: 04/18/21 04:32> <BALJIT CAMPBELL - Last Filed: 04/18/21 13:11> - Medications Home Medications: Home Medications Medication Instructions Recorded Confirmed Last Taken Type Amoxicillin [Amoxicillin TAB] 875 mg PO BID #20 tablet 10/21/16 Unknown Rx Ibuprofen [Motrin] 600 mg PO Q8H PRN #15 tablet 10/21/16 Unknown Rx Ondansetron [Zofran Odt] 4 mg PO Q8HR PRN #20 tab.rapdis 02/01/19 Unknown Rx Ketorolac [Toradol] 10 mg PO Q6H PRN #15 tablet 09/08/20 Unknown Rx methOCARBAMOL [Robaxin TAB] 750 mg PO Q8H PRN #20 tablet 09/08/20 Unknown Rx Sertraline [Zoloft] 25 mg PO QDAY #30 tab 04/18/21 Unknown Rx ED Review of Systems ROS: Stated complaint: SUICIDAL THOUGHT/MH EVAL Other details as noted in HPI Constitutional: no symptoms reported Eyes: denies: eye pain ENT: denies: throat pain Respiratory: no symptoms reported Cardiovascular: denies: chest pain Endocrine: no symptoms reported Gastrointestinal: denies: abdominal pain Genitourinary: denies: dysuria Musculoskeletal: denies: back pain Neurological: denies: headache Psychiatric: suicidal thoughts <KARL DURÁN - Last Filed: 04/18/21 04:32> ROS: Stated complaint: SUICIDAL THOUGHT/MH EVAL Other details as noted in HPI <BALJIT CAMPBELL - Last Filed: 04/18/21 13:11> Physical Exam - Physical Exam Vital Signs: Vital Signs 04/18/21 04/18/21 02:19 02:34 Temperature 98.0 F 98.1 F Pulse Rate 64 98 H Respiratory 18 18 Rate Blood Pressure 130/72 106/67 O2 Sat by Pulse 100 97 Oximetry Physical Exam: GENERAL: The patient is well-developed well-nourished male lying on stretcher not appearing to be in acute distress. [] HEENT: Normocephalic. Atraumatic. Extraocular motions are intact. Patient has moist mucous membranes. NECK: Supple. Trachea midline CHEST/LUNGS: Clear to auscultation. There is no respiratory distress noted. HEART/CARDIOVASCULAR: Regular. There is no tachycardia. There is no gallop rub or murmur. ABDOMEN: Abdomen is soft, nontender. Patient has normal bowel sounds. There is no abdominal distention. SKIN: There is no rash. There is no edema. There is no diaphoresis. NEURO: The patient is awake, alert, and oriented. The patient is cooperative. The patient has no focal neurologic deficits. The patient has normal speech MUSCULOSKELETAL: There is no evidence of acute injury. <KARL DURÁN - Last Filed: 04/18/21 04:32> - Physical Exam Vital Signs: Vital Signs 04/18/21 04/18/21 04/18/21 02:19 02:34 05:19 Temperature 98.0 F 98.1 F Pulse Rate 64 98 H Respiratory 18 18 18 Rate Blood Pressure 130/72 106/67 Blood Pressure [Left] O2 Sat by Pulse 100 97 100 Oximetry 04/18/21 05:56 Temperature 97.6 F Pulse Rate 78 Respiratory 18 Rate Blood Pressure Blood Pressure 114/71 [Left] O2 Sat by Pulse 100 Oximetry <BALJIT CAMPBELL - Last Filed: 04/18/21 13:11> ED Course Vital Signs 04/18/21 04/18/21 02:19 02:34 Temperature 98.0 F 98.1 F Pulse Rate 64 98 H Respiratory 18 18 Rate Blood Pressure 130/72 106/67 O2 Sat by Pulse 100 97 Oximetry <KARL DURÁN - Last Filed: 04/18/21 04:32> Vital Signs 04/18/21 04/18/21 04/18/21 02:19 02:34 05:19 Temperature 98.0 F 98.1 F Pulse Rate 64 98 H Respiratory 18 18 18 Rate Blood Pressure 130/72 106/67 Blood Pressure [Left] O2 Sat by Pulse 100 97 100 Oximetry 04/18/21 05:56 Temperature 97.6 F Pulse Rate 78 Respiratory 18 Rate Blood Pressure Blood Pressure 114/71 [Left] O2 Sat by Pulse 100 Oximetry - Reevaluation(s) Reevaluation #1: 04/18/21 13:09 Psychiatric Consult Note Patient Name: JUSTINO HENNING Date of : 89 Patient Status: Emergency Emergency Provider: BALJIT CAMPBELL Date: 04/18/21 11:52 Initialization Date: 04/18/21 11:52 History of Present Illness - Reason for Consult Consult date: 04/18/21 Reason for consult: SI - History of Present Psychiatric Illness Per ER Note: The patient is a 31-year-old male present with a chief complaint of suicidal ideation. Patient has a history of schizophrenia states for 1 day he has had suicidal ideation. Patient denies any actual attempts at harming himself or having a plan. Justino Henning is a 31y/o male patient who presented to the ER for SI. During my evaluation, the patient was calm and cooperative. He makes good eye contact. He says he's "doing good." He says he came to the hospital because he "was h aving a lot of negative vibes." He says he needed to come and calm down. He says he's been off his med for about 2 years. He says he was on zoloft. He denies being on any other meds. The patient says he has a history of schizophrenia. He says he lives between hotels and being homeless and drove himself here. The patient denies SI/HI at this time, or hallucinations of any kind. PAST PSYCHIATRIC HISTORY: Diagnoses: schizophrenia Suicide attempts or Self-harm behavior: Denies Prior psychiatric hospitalizations: Yes Substance Abuse history: Denies Previous psychiatric medications tried: zoloft Outpatient treatment: Denies PAST MEDICAL HISTORY: None reported Family Psychiatric History: None reported or documented SOCIAL HISTORY Marital Status: Single Living Arrangements: between hotels and being homeless Employment Status: Employed Access to guns/weapons: Denies Education: Some high school History of Abuse: None reported Legal History: None reported REVIEW OF SYSTEMS Constitutional: Negative for weight loss ENT: Negative for stridor Respiratory: Negative for cough or hemoptysis All other systems reviewed and are negative MENTAL STATUS EXAMINATION General Appearance and Behavior: Age appropriate, good hygiene, wearing appropriate clothes, good eye contact, calm, cooperative Cooperation: cooperative, engaging Psychomotor Behavior: Psychomotor normal Mood: "good" Affect and affective range: congruent with stated mood Thought Process: goal directed Thought Content: None Speech: Normal tone and pace Suicidal Ideation: Denies Homicidal Ideation: Denies Hallucinations: Denies Delusions: None elicited Impulse Control: Unimpaired Insight and Judgment: Limited insight and judgment Memory: Normal Attention: Undivided attention impaired Orientation: a/o x 3 Assessment and Plan (1) Major Depressive Disorder Current Visit: Yes Status: Acute Treatment Plan d/c 1013 Start Zoloft 25mg po daily Sitter: Defer to primary Medical: Per primary Disposition: Do not recommend acute psychiatric inpatient treatment. The patient understands that if suicidal thoughts gets worse he is to seek immediate assistance including 911/ER or crisis hotline The fashion illustrator is to give the patient's resources outpatient psych, for med management, CBT, shelters. The patient is to follow up with outpatient psych in 7 to 14 days upon discharge Extrusion Utility Worker is to further discuss safety plan with the patient. Will sign off. Thank you for this consult. Case staffed with Dr. Mcwilliams Reevaluation #2: 04/18/21 13:10 Patient seen by mental health assessment team. Patient states he is no longer having suicidal thoughts and actually just want to come here to "calm down"., Cooperative. Patient is asking to get back on his Zoloft. Prescription has been written patient is contracted for safety and 1013 is been rescinded. Patient stable for discharge. <BALJIT CAMPBELL - Last Filed: 04/18/21 13:11> ED Medical Decision Making - Lab Data Result diagrams: 04/18/21 01:15 04/18/21 01:15 - Differential Diagnosis Suicidal ideation <KARL DURÁN - Last Filed: 04/18/21 04:32> - Lab Data Result diagrams: 04/18/21 01:15 04/18/21 01:15 <BALJIT CAMPBELL - Last Filed: 04/18/21 13:11> Critical care attestation.: If time is entered above; I have spent that time in minutes in the direct care of this critically ill patient, excluding procedure time. <LEEANNAKARL Swathi - Last Filed: 04/18/21 04:32> Critical care attestation.: If time is entered above; I have spent that time in minutes in the direct care of this critically ill patient, excluding procedure time. <ADRIANBALJIT - Last Filed: 04/18/21 13:11> ED Disposition Is pt being admited?: No Does the pt Need Aspirin: No Time of Disposition: 04:35 (Awaiting acceptance) <KARL DURÁN Swathi - Last Filed: 04/18/21 04:32> Is pt being admited?: No Does the pt Need Aspirin: No Time of Disposition: 13:11 <BALJIT CAMPBELL - Last Filed: 04/18/21 13:11> Clinical Impression: Schizophrenia, Passive suicidal ideations Disposition: DC-01 TO HOME OR SELFCARE Condition: Stable Additional Instructions: CRISIS RESOURCES [place] Crisis Line: Suicide Prevention Line: Emergency: 911 [facility]: Please follow up with [facility] for outpatient mental health follow up: . If you need housing, please follow up with [facility]; info below: [facility] [address] [place] [phone] If you are interested in a program, please contact [facility], or [facility] [phone] more information and to assess next steps. Regular program admission occurs Thursday through Thursday at 7:00 amand operates on a first come, first serve basis.Because we cant anticipate program availab ility in advance andprogram spots are in high demand, we recommend arriving early. Space fills up fast! [facility] in Transition from Homelessness (PATH) provides services for men experiencing homelessness and who have severe and persisted mental illness. [facility] partners are [facility], [place], [facility], and [facility]. [facility] in Transition from Homelessness ([facility]) Outreach Program assists unsheltered persons by engaging them where they are located, ensuring they access any treatment they need. Prescriptions: Sertraline [Zoloft] 25 mg PO QDAY #30 tab Referrals: PRIMARY CARE, [Primary Care Provider] - 3-5 Days
[2021-04-18 05:56] VITALS: BP 114/71
--- NOTE | 2021-04-18 11:53 | Consultation ---
History of Present Illness - Reason for Consult Consult date: 04/18/21 Reason for consult: SI - History of Present Psychiatric Illness Per ER Note: The patient is a 31-year-old male present with a chief complaint of suicidal ideation. Patient has a history of schizophrenia states for 1 day he has had suicidal ideation. Patient denies any actual attempts at harming himself or having a plan. Oj Nguyễn is a 31y/o male patient who presented to the ER for SI. During my evaluation, the patient was calm and cooperative. He makes good eye contact. He says he's "doing good." He says he came to the hospital because he "was having a lot of negative vibes." He says he needed to come and calm down. He says he's been off his med for about 2 years. He says he was on zoloft. He denies being on any other meds. The patient says he has a history of schizo phrenia. He says he lives between hotels and being homeless and drove himself here. The patient denies SI/HI at this time, or hallucinations of any kind. PAST PSYCHIATRIC HISTORY: Diagnoses: schizophrenia Suicide attempts or Self-harm behavior: Denies Prior psychiatric hospitalizations: Yes Substance Abuse history: Denies Previous psychiatric medications tried: zoloft Outpatient treatment: Denies PAST MEDICAL HISTORY: None reported Family Psychiatric History: None reported or documented SOCIAL HISTORY Marital Status: Single Living Arrangements: between hotels and being homeless Employment Status: Employed Access to guns/weapons: Denies Education: Some high school History of Abuse: None reported Legal History: None reported REVIEW OF SYSTEMS Constitutional: Negative for weight loss ENT: Negative for stridor Respiratory: Negative for cough or hemoptysis All other systems reviewed and are negative MENTAL STATUS EXAMINATION General Appearance and Behavior: Age appropriate, good hygiene, wearing appropriate clothes, good eye contact, calm, cooperative Cooperation: cooperative, engaging Psychomotor Behavior: Psychomotor normal Mood: "good" Affect and affective range: congruent with stated mood Thought Process: goal directed Thought Content: None Speech: Normal tone and pace Suicidal Ideation: Denies Homicidal Ideation: Denies Hallucinations: Denies Delusions: None elicited Impulse Control: Unimpaired Insight and Judgment: Limited insight and judgment Memory: Normal Attention: Undivided attention impaired Orientation: a/o x 3 Assessment and Plan (1) Major Depressive Disorder Current Visit: Yes Status: Acute Treatment Plan d/c 1013 Start Zoloft 25mg po daily Sitter: Defer to primary Medical: Per primary Disposition: Do not recommend acute psychiatric inpatient treatment. The patient understands that if suicidal thoughts gets worse he is to seek immediate assistance including 911/ER or crisis hotline The integrated campaign manager is to give the patient's resources outpatient psych, for med management, CBT, shelters. The patient is to follow up with outpatient psych in 7 to 14 days upon discharge Vice President Risk Management is to further discuss safety plan with the patient. Will sign off. Thank you for this consult. Case staffed with Dr. Mcwilliams Medications and Allergies Allergies Allergy/AdvReac Type Severity Reaction Status Date / Time pineapple Allergy Swelling Verified 03/09/20 19:43 Home Medications Medication Instructions Recorded Confirmed Last Taken Type Amoxicillin [Amoxicillin TAB] 875 mg PO BID #20 tablet 10/21/16 Unknown Rx Ibuprofen [Motrin] 600 mg PO Q8H PRN #15 tablet 10/21/16 Unknown Rx Ondansetron [Zofran Odt] 4 mg PO Q8HR PRN #20 tab.rapdis 02/01/19 Unknown Rx Ketorolac [Toradol] 10 mg PO Q6H PRN #15 tablet 09/08/20 Unknown Rx methOCARBAMOL [Robaxin TAB] 750 mg PO Q8H PRN #20 tablet 09/08/20 Unknown Rx Mental Status Exam - Vital signs Last Vital Signs Temp 97.6 F 04/18/21 05:56 Pulse 78 04/18/21 05:56 Resp 18 04/18/21 05:56 BP 114/71 04/18/21 05:56 Pulse Ox 100 04/18/21 05:56 Results Result Diagrams: 04/18/21 01:15 04/18/21 01:15 Abnormal lab results 04/18/21 04/18/21 04/18/21 Range/Units 01:15 01:15 01:15 RDW 12.3 L (13.2-15.2) % Lymph % (Auto) 51.3 H (13.4-35.0) % Ritchie % (Auto) 10.3 H (0.0-7.3) % Seg Neutrophils % 37.1 L (40.0-70.0) % Potassium 3.5 L (3.6-5.0) mmol/L Salicylates < 0.3 L (2.8-20.0) mg/dL Acetaminophen (10.0-30.0) ug/mL 04/18/21 Range/Units 01:15 RDW (13.2-15.2) % Lymph % (Auto) (13.4-35.0) % Ritchie % (Auto) (0.0-7.3) % Seg Neutrophils % (40.0-70.0) % Potassium (3.6-5.0) mmol/L Salicylates (2.8-20.0) mg/dL Acetaminophen 5.0 L (10.0-30.0) ug/mL All other labs normal.
== END 2021-04-18 13:23 | disposition home or self-care (01) ==
LOC: ED 01:06
DX: F20.9 Schizophrenia, unspecified (principal); R45.851 Suicidal ideations; F41.9 Anxiety disorder, unspecified; Z79.899 Other long term (current) drug therapy
CPT/HCPCS: 36415; 80053; 80320; 84443; 85025; 99284; G0480

== ENCOUNTER 2021-04-25 19:24 | Emergency (ER) | payer SELFPAY ==
[2021-04-25] MEDS ORDERED: ZIPRASIDONE MESYLATE 20 MG VIAL IM ONE ×2 (20:16→20:30)
[2021-04-25] MEDS ORDERED: WATER FOR INJ Sterile (PF) 10 ML ONE (20:16)
[2021-04-25 20:44] LABS: Bilirubin,Urine NEG (Negative); Blood,Urine NEG (Negative); Color,Urine Yellow (Yellow); Mucus,Urine FEW /HPF; Sperm,Urine FEW /HPF (NP); WBC,Urine < 1.0 /HPF (0.0-6.0)
[2021-04-25 20:46] LABS: Basophils % (Auto) 0.8 % (0.0-1.8); Eosinophils % (Auto) 0.7 % (0.0-4.3); Hematocrit 43.4 % (35.5-45.6); Hemoglobin 14.9 gm/dl (11.8-15.2); Lymphocytes # (Auto) 2.2 K/mm3 (1.2-5.4); Lymphocytes % (Auto) 44.4 % (13.4-35.0); Mean Corpuscular HGB Conc 34 % (32-34); Mean Corpuscular Volume 94 fl (84-94); Monocytes # (Auto) 0.7 K/mm3 (0.0-0.8); Monocytes % (Auto) 13.4 % (0.0-7.3); Platelet Count 335 K/mm3 (140-440); Red Blood Count 4.61 M/mm3 (3.65-5.03); Red Cell Distribution Width 12.4 % (13.2-15.2)
--- NOTE | 2021-04-25 20:47 | Emergency Department Report ---
<PK PERAZA III - Last Filed: 04/25/21 23:41> ED Psych HPI - General Chief Complaint: Psych Stated Complaint: MH Time Seen by Provider: 04/25/21 20:15 Source: patient Mode of arrival: Ambulatory - History of Present Illness Initial Comments: Patient is a 31-year-old male who presents emergency with complaints of needing a mental health evaluation for aggressive behavior, suicidal ideation, homicidal ideations, audio and visual hallucinations. Patient states he has a plan to kill himself by slitting his wrist. Patient states he has homicidal thoughts towards all people. Patient denies anxiety. Patient complains of depression. Patient denies recent travel. Patient denies recent international travel. Patient denies exposure to the novel coronavirus. Patient denies sick contacts. Patient denies fever and chills. Patient denies cough. Patient denies diarrhea. Patient denies coming in contact with anybody with symptoms of the novel coronavirus. MD Complaint: suicidal ideation, feels depressed -: Sudden Associated Psychiatric Symptoms: depression, suicidal ideation, homicidal ideation, racing thoughts, auditory hallucinations, visual hallucinations History of same: Yes Quality: constant Improves With: none Worsens With: none Context: significant life stressor Associated Symptoms: denies: confusion, headache, shortness of breath, nausea, vomiting, syncope, insomnia If Self Harm: admits thoughts of, has plan - Related Data Previous Rx's Medication Instructions Recorded Last Taken Type Amoxicillin [Amoxicillin TAB] 875 mg PO BID #20 tablet 10/21/16 Unknown Rx Ibuprofen [Motrin] 600 mg PO Q8H PRN #15 tablet 10/21/16 Unknown Rx Ondansetron [Zofran Odt] 4 mg PO Q8HR PRN #20 tab.rapdis 02/01/19 Unknown Rx Ketorolac [Toradol] 10 mg PO Q6H PRN #15 tablet 09/08/20 Unknown Rx methOCARBAMOL [Robaxin TAB] 750 mg PO Q8H PRN #20 tablet 09/08/20 Unknown Rx Sertraline [Zoloft] 25 mg PO QDAY #30 tab 04/18/21 Unknown Rx Allergies Allergy/AdvReac Type Severity Reaction Status Date / Time pineapple Allergy Swelling Verified 03/09/20 19:43 ED Review of Systems Constitutional: denies: chills, fever Eyes: denies: eye pain, eye discharge, vision change ENT: denies: ear pain, throat pain Respiratory: denies: cough, shortness of breath, wheezing Cardiovascular: denies: chest pain, palpitations Endocrine: no symptoms reported Gastrointestinal: denies: abdominal pain, nausea, diarrhea Genitourinary: denies: urgency, dysuria Musculoskeletal: denies: back pain, joint swelling, arthralgia Skin: denies: rash, lesions Neurological: denies: headache, weakness, paresthesias Psychiatric: as per HPI, depression, auditory hallucinations, visual hallucinations, homicidal thoughts, suicidal thoughts. denies: anxiety Hematological/Lymphatic: denies: easy bleeding, easy bruising ED Past Medical Hx - Past Medical History Previous Medical History?: Yes Hx Psychiatric Treatment: Yes (Paronoid Schizophrenia, Anxiety) - Surgical History Past Surgical History?: No - Family History Family history: no significant - Social History Smoking Status: Current Every Day Smoker Substance Use Type: None - Medications Home Medications: Home Medications Medication Instructions Recorded Confirmed Last Taken Type Amoxicillin [Amoxicillin TAB] 875 mg PO BID #20 tablet 10/21/16 Unknown Rx Ibuprofen [Motrin] 600 mg PO Q8H PRN #15 tablet 10/21/16 Unknown Rx Ondansetron [Zofran Odt] 4 mg PO Q8HR PRN #20 tab.rapdis 02/01/19 Unknown Rx Ketorolac [Toradol] 10 mg PO Q6H PRN #15 tablet 09/08/20 Unknown Rx methOCARBAMOL [Robaxin TAB] 750 mg PO Q8H PRN #20 tablet 09/08/20 Unknown Rx Sertraline [Zoloft] 25 mg PO QDAY #30 tab 04/18/21 Unknown Rx ED Physical Exam - General Limitations: No Limitations General appearance: alert, in no apparent distress - Head Head exam: Present: atraumatic, normocephalic - Eye Eye exam: Present: normal appearance - ENT ENT exam: Present: mucous membranes moist - Neck Neck exam: Present: normal inspection - Respiratory Respiratory exam: Present: normal lung sounds bilaterally. Absent: respiratory distress, wheezes, rales - Cardiovascular Cardiovascular Exam: Present: regular rate, normal rhythm. Absent: systolic murmur, diastolic murmur, rubs, gallop - GI/Abdominal GI/Abdominal exam: Present: soft, normal bowel sounds - Rectal Rectal exam: Present: deferred - Extremities Exam Extremities exam: Present: normal inspection - Back Exam Back exam: Present: normal inspection - Neurological Exam Neurological exam: Present: alert, oriented X3 - Psychiatric Psychiatric exam: Present: flat affect, homicidal ideation, suicidal ideation - Expanded Psychiatric Exam Expanded Focused psych exam: Present: pressured speech, internal stimuli, psychomotor agitation - Skin Skin exam: Present: warm, dry, intact, normal color. Absent: rash ED Course - Reevaluation(s) Reevaluation #1: Patient placed on a 1013. Patient placed on a ER hold. Patient given Geodon 20mg for agitation. 04/25/21 20:32 Reevaluation #2: Patient is medically cleared. Patient will remain in the ER as an ER hold and on a 1013 until the patient is cleared by our psychiatry team. Patient final d isposition will come from our psychiatry team. 04/25/21 23:31 ED Medical Decision Making - Lab Data Result diagrams: 04/25/21 20:35 04/25/21 20:35 - Medical Decision Making Patient is a 31-year-old male who presents emergency room with complaints of homicidal ideation, suicide patient with a plan, depression, hallucinations aggressive behavior. Patient displaying aggressive behavior upon initial ev aluation. Patient was given Geodon 20 mg IM. Patient had labs done which were essentially unremarkable. After initial valuation, the patient was placed on a 1013 due to his complaints of suicidal ideation with plan and homicidal ideations towards people. Patient also complained of audiovisual hampton llucinations. Patient placed on a ER hold from patient is medically cleared. Patient remained in the ER until the patient is cleared from a psychiatric standpoint by a psychiatrist. Patient is final disposition will come from our psychiatry team. - Differential Diagnosis Suicidal ideation, homicidal ideation, hallucinations, depression, aggressi ED Disposition Clinical Impression: History of schizophrenia, Depression, Inability to cope Disposition: DC-01 TO HOME OR SELFCARE Is pt being admited?: No Does the pt Need Aspirin: No Condition: Stable Instructions: Schizophrenia, Stress, Adult, Living With Depression Additional Instructions: [facility] [address] [place] [id number] Thursday - Thursday: 8 AM - 5 PM (Main) (Appointments) Please follow-up with a primary care physician in the next few days. I have given you a referral for [facility]. You have also been given a referral for the behavioral health outpatient center, listed above, as well as the [facility]. Please take all medications as prescribed. Please avoid any excessive alcohol use, illicit drug use, or any excessive caffeine use. Return to the closest emergency department with any worsening of your symptoms, thoughts of harming your self or others, or with any acute distress. Referrals: PRIMARY CARE, [Primary Care Provider] - 2-3 Days [facility] [Outside] - 3-5 Days [facility] [Provider Group] - 3-5 Days Time of Disposition: 23:44 <MINDI WALSL - Last Filed: 04/26/21 10:13> ED Review of Systems ROS: Stated complaint: MH Other details as noted in HPI ED Course Vital Signs 04/25/21 04/26/21 04/26/21 20:33 02:27 09:07 Temperature 97.4 F L Pulse Rate 73 Respiratory 18 18 18 Rate Blood Pressure 100/61 [Right] O2 Sat by Pulse 99 98 98 Oximetry ED Medical Decision Making - Lab Data Result diagrams: 04/25/21 20:35 04/25/21 20:35 - Medical Decision Making This patient initially told the provider that he was suicidal. When speaking with the psychiatric production foreman the patient admits that he just told the initial provider that he was suicidal but effectively he just feels that he does not know how to deal with any issues that arise. He did not endorse suicidal ideations to the psychiatric production foreman, or express suicidal ideations to me when he was reassessed this morning. Therefore, the patient does not appear to require a 1013 or inpatient stabilization. He was previously medically cleared and does not have any life or limb threatening emergencies that require a medical admission. Labs have been unremarkable. Vital signs reassuring throughout his ED course including being afebrile. The patient will be given outpatient referrals for psychiatric care. He has been instructed to return to the emergency department with any worsening of his symptoms, thoughts of harming himself or others, or with any acute distress. Critical Care Time: No Critical care attestation.: If time is entered above; I have spent that time in minutes in the direct care of this critically ill patient, excluding procedure time. ED Disposition Is pt being admited?: No
[2021-04-25 20:50] LABS: Amphetamine Screen,Urine Negative; Benzodiazepines Screen,Urine Negative; Cocaine Screen,Urine Negative; Methadone Screen,Urine Negative; Opiate Screen,Urine Negative
[2021-04-25 21:08] LABS: Alanine Aminotransferase 19 units/L (7-56); BUN/Creatinine Ratio 17; Blood Urea Nitrogen 15 mg/dL (9-20); Calcium 10.2 mg/dL (8.4-10.2); Hemolysis Index 8
[2021-04-25 21:09] LABS: Cannabinoid Screen,Urine Positive
--- NOTE | 2021-04-26 10:33 | Emergency Department Report ---
Blank Doc - Documentation Documentation: Initially this patient was going to be discharged this morning. At first he d enied any suicidal homicidal ideations. It is possible that he could be malingering, however when the ER psychiatric nurse went to discharge the patient he told her that he was cannot leave because he wants to kill himself and other people. The patient will be placed back on a 1013 and ED hold until he is seen by the psychiatric team.
--- NOTE | 2021-04-26 11:49 | Consultation ---
History of Present Illness - Reason for Consult Consult date: 04/26/21 Reason for consult: SI - History of Present Psychiatric Illness Per ED Note: Initially this patient was going to be discharged this morning. At first he denied any suicidal homicidal ideations. It is possible that he could be malingering, however when the ER psychiatric nurse went to discharge the patient he told her that he was cannot leave because he wants to kill himself and other people. The patient will be placed back on a 1013 and ED hold until he is seen by the psychiatric team. Oj Nguyễn is a 31y/o male patient who presented to the ER initially with SI/HI. Upon my evaluation of the patient he is calm and cooperative. He makes good eye contact. The patient says when he came in he was hallucinating and "hearing all kinds of stuff." He could not be specific as to what he was hearing. When asked was he hallucinating now, the patient says "a little bit but not like I was." He denies SI/HI or ever having an attempt. He says "I mostly j ust thought about it in the past." He says he's been off his meds for about a year. Discussed with the patient the need for medication compliance and his need for frequent outpatient visits. The patient was in agreement with plan. PAST PSYCHIATRIC HISTORY: Diagnoses: Schizophrenia Suicide attempts or Self-harm behavior: Denies Prior psychiatric hospitalizations: Yes Substance Abuse history: Denies Previous psychiatric medications tried: could not recall (been off for a year) Outpatient treatment: Denies PAST MEDICAL HISTORY: None reported Family Psychiatric History: None reported SOCIAL HISTORY Marital Status: Single Living Arrangements: with someone Employment Status: Unemployed Access to guns/weapons: Denies Education: high school History of Abuse: none reported Legal History: REVIEW OF SYSTEMS Constitutional: Negative for weight loss ENT: Negative for stridor Respiratory: Negative for cough or hemoptysis All other systems reviewed and are negative MENTAL STATUS EXAMINATION General Appearance: Dressed appropriately, Behavior: calm and cooperative Mood: "okay" Affect and affective range: congruent with mood Thought Process: goal directed Speech: Low tone Thought content: Suicidal Ideation: Denies Homicidal Ideation: Denies Hallucinations: Auditory but better Delusions: None elicited Insight and Judgment: Limited insight and judgment Memory: Limited Attention: Normal Orientation: Alert, oriented Assessment Schizophrenia Treatment Plan d/c 1013 Prozac 10mg po daily Olanzapine 2.5mg po daily Give both meds prior to discharge Sitter: Defer to primary Medical: Per primary Disposition: Do not recommend acute psychiatric inpatient treatment. The patient understands that if suicidal/homicidal thoughts are to arise the patient is to seek immediate assistance including but not limited to 911/ER and/or crisis hotline. The traveling storekeeper to further discuss safety plan and document The traveling storekeeper to give the patient outpatient resources for CBT, med management and med assistance programs The patient to follow up in 7 to 14 days upon discharge Will sign off. Thank you for this consult. Case staffed with Dr. Mcwilliams Medications and Allergies Allergies Allergy/AdvReac Type Severity Reaction Status Date / Time pineapple Allergy Swelling Verified 03/09/20 19:43 Home Medications Medication Instructions Recorded Confirmed Last Taken Type Amoxicillin [Amoxicillin TAB] 875 mg PO BID #20 tablet 10/21/16 Unknown Rx Ibuprofen [Motrin] 600 mg PO Q8H PRN #15 tablet 10/21/16 Unknown Rx Ondansetron [Zofran Odt] 4 mg PO Q8HR PRN #20 tab.rapdis 02/01/19 Unknown Rx Ketorolac [Toradol] 10 mg PO Q6H PRN #15 tablet 09/08/20 Unknown Rx methOCARBAMOL [Robaxin TAB] 750 mg PO Q8H PRN #20 tablet 09/08/20 Unknown Rx Sertraline [Zoloft] 25 mg PO QDAY #30 tab 04/18/21 Unknown Rx FLUoxetine [PROzac] 10 mg PO QDAY #30 tablet 04/26/21 Unknown Rx OLANzapine [ZyPREXA] 2.5 mg PO QDAY #30 tablet 04/26/21 Unknown Rx Mental Status Exam - Vital signs Last Vital Signs Temp 97.4 F L 04/26/21 02:27 Pulse 73 04/26/21 02:27 Resp 18 04/26/21 09:07 BP 100/61 04/26/21 02:27 Pulse Ox 98 04/26/21 09:07 Results Result Diagrams: 04/25/21 20:35 04/25/21 20:35 Abnormal lab results 04/25/21 04/25/21 04/25/21 Range/Units 20:35 20:35 20:35 RDW 12.4 L (13.2-15.2) % Lymph % (Auto) 44.4 H (13.4-35.0) % Douglas % (Auto) 13.4 H (0.0-7.3) % Sodium 136 L (137-145) mmol/L Salicylates < 0.3 L (2.8-20.0) mg/dL Acetaminophen (10.0-30.0) ug/mL 04/25/21 Range/Units 20:35 RDW (13.2-15.2) % Lymph % (Auto) (13.4-35.0) % Douglas % (Auto) (0.0-7.3) % Sodium (137-145) mmol/L Salicylates (2.8-20.0) mg/dL Acetaminophen 5.0 L (10.0-30.0) ug/mL All other labs normal.
[2021-04-26] MEDS ORDERED: FLUoxetine 10 MG TAB PO ONE (11:58)
[2021-04-26 18:10] VITALS: BP 139/86
== END 2021-04-26 18:18 | disposition home or self-care (01) ==
LOC: ED 19:24
DX: F25.1 Schizoaffective disorder, depressive type (principal); R45.89 Other symptoms and signs involving emotional state; F41.9 Anxiety disorder, unspecified; F17.200 Nicotine dependence, unspecified, uncomplicated; Z91.018 Allergy to other foods; Z79.899 Other long term (current) drug therapy
CPT/HCPCS: 36415; 80053; 80307; 81001; 85025; 96372; 99284; J3486; 80320; G0480

== ENCOUNTER 2021-04-27 17:11 | Emergency (ER) | payer SELFPAY ==
[2021-04-27 19:38] LABS: Basophils # (Auto) 0.1 K/mm3 (0.0-0.1); Eosinophils % (Auto) 0.6 % (0.0-4.3); Hematocrit 45.3 % (35.5-45.6); Hemoglobin 14.8 gm/dl (11.8-15.2); Lymphocytes # (Auto) 2.7 K/mm3 (1.2-5.4); Mean Corpuscular HGB Conc 33 % (32-34); Mean Corpuscular Volume 95 fl (84-94); Monocytes # (Auto) 0.6 K/mm3 (0.0-0.8); Monocytes % (Auto) 11.3 % (0.0-7.3); Platelet Count 368 K/mm3 (140-440); Red Blood Count 4.79 M/mm3 (3.65-5.03); Red Cell Distribution Width 12.4 % (13.2-15.2)
[2021-04-27 19:52] LABS: BUN/Creatinine Ratio 18; Blood Urea Nitrogen 18 mg/dL (9-20); Calcium 9.5 mg/dL (8.4-10.2); Hemolysis Index 100
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
[2021-04-27] MEDS: FLUoxetine 10 MG TAB PO SCH (21:15)
[2021-04-28 08:19] VITALS: BP 141/96
[2021-04-28] MEDS: FLUoxetine 10 MG TAB PO SCH (10:02)
--- NOTE | 2021-04-28 10:30 | Event Note ---
Date: 04/28/21 31-year-old male with history of schizophrenia presented 619 complaining of auditory hallucinations and suicidal ideation. Labs resulted and the patient was medically cleared by my colleague. Home meds have been reconciled and restarted. Urinalysis is still pending. There were no acute events overnight. Vital signs stable. Currently awaiting further psychiatric recommendations regarding disposition.
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
--- NOTE | 2021-04-28 13:28 | Event Note ---
Date: 04/28/21 Patient was seen by the psychiatry team today and the 2013 was discontinued. They recommended that the patient be discharged continuing his home medications which he has and to follow-up outpatient.
== END 2021-04-28 14:27 | disposition home or self-care (01) ==
LOC: ED 17:11
DX: F20.0 Paranoid schizophrenia (principal); R45.851 Suicidal ideations; F41.9 Anxiety disorder, unspecified; F17.200 Nicotine dependence, unspecified, uncomplicated; F12.90 Cannabis use, unspecified, uncomplicated; Z91.018 Allergy to other foods; Z79.899 Other long term (current) drug therapy
CPT/HCPCS: 36415; 80048; 80320; 85025; G0480

== ENCOUNTER 2021-10-13 07:03 | Emergency (ER) | payer SELFPAY ==
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
[2021-10-13 08:30] LABS: Basophils % (Auto) 0.4 % (0.0-1.8); Eosinophils # (Auto) 0.1 K/mm3 (0.0-0.4); Hematocrit 43.9 % (35.5-45.6); Hemoglobin 14.5 gm/dl (11.8-15.2); Lymphocytes # (Auto) 2.7 K/mm3 (1.2-5.4); Lymphocytes % (Auto) 50.7 % (13.4-35.0); Mean Corpuscular HGB Conc 33 % (32-34); Mean Corpuscular Volume 96 fl (84-94); Monocytes # (Auto) 0.5 K/mm3 (0.0-0.8); Monocytes % (Auto) 9.5 % (0.0-7.3); Platelet Count 291 K/mm3 (140-440); Red Blood Count 4.58 M/mm3 (3.65-5.03); Red Cell Distribution Width 12.4 % (13.2-15.2)
[2021-10-13 08:49] LABS: BUN/Creatinine Ratio 14; Blood Urea Nitrogen 11 mg/dL (9-20); Calcium 9.4 mg/dL (8.4-10.2); Hemolysis Index 7
[2021-10-13 09:15] LABS: Bilirubin,Urine NEG (Negative); Blood,Urine NEG (Negative); Color,Urine Yellow (Yellow); Mucus,Urine 3+ /HPF; Protein,Urine <15 mg/dL mg/dL (Negative)
[2021-10-13 09:23] LABS: Amphetamine Screen,Urine Negative; Benzodiazepines Screen,Urine Negative; Cocaine Screen,Urine Negative; Methadone Screen,Urine Negative; Opiate Screen,Urine Negative
[2021-10-13 09:45] LABS: Cannabinoid Screen,Urine Positive
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
[2021-10-13] MEDS: FLUoxetine 10 MG TAB PO SCH (13:25)
[2021-10-13] MEDS ORDERED: SUCCINYLCHOLINE CHLORIDE 200 MG/10 ML INJ MDV ONE (20:50)
[2021-10-13] MEDS ORDERED: ETOMIDATE 20 MG/10 ML INJ IV ONE (20:50)
[2021-10-13] MEDS ORDERED: ROCURONIUM 50 MG/5 ML INJ IV ONE ×2 (20:55→20:56)
[2021-10-13] MEDS: DOXEPIN 10 MG CAP PO SCH (22:17)
[2021-10-14] MEDS: FLUoxetine 10 MG TAB PO SCH (09:54)
--- NOTE | 2021-10-14 11:27 | Progress Note ---
Subjective - Reason for Consult Consult date: 10/14/21 Reason for consult: psychosis - Chief Complaint Chief complaint: The patient was seen today, he is still psychotic. He is paranoid and says he feels like someone who's been been sex trafficking. The patient is suspicious and talking very low and looking around. He says he feels like "the voices are eves dropping right now." He says "they are listening to what's beneficial for them." The patient says he "feels hopeless" when asked if he was suicidal. He would not answer the question directly. REVIEW OF SYSTEMS Constitutional: Negative for weight loss ENT: Negative for stridor Respiratory: Negative for cough or hemoptysis All other systems reviewed and are negative MENTAL STATUS EXAMINATION General Appearance: Dressed appropriately, Behavior: calm and cooperative, odd Mood: depressed Affect and affective range: congruent with mood Thought Process: illogical, psychotic Speech: Low tone, whispering at times Thought content: Suicidal Ideation: Yes, with plan Homicidal Ideation: Denies Hallucinations: auditory, responding to internal stimuli Delusions: Yes, paranoia Insight and Judgment: Poor insight and judgment Memory: Limited Attention: Distracted Orientation: Alert, oriented Assessment Schizophrenia Treatment Plan 1013 Doxepin 10mg po qhs Increase Prozac 20mg po daily Increase Olanzapine 10mg po daily Sitter: Defer to primary Medical: Per primary Disposition: Recommend acute psychiatric inpatient treatment Will follow. Thank you for this consult. Case staffed with Dr. Mcwilliams Mental Status Exam - Vital signs Last Vital Signs Temp 97.5 F L 10/13/21 20:07 Pulse 68 10/13/21 20:07 Resp 18 10/13/21 20:07 BP 98/62 10/13/21 20:07 Pulse Ox 98 10/14/21 08:54
[2021-10-14] MEDS ORDERED: FLUoxetine 20 MG CAP PO SCH (12:00)
--- NOTE | 2021-10-14 17:46 | Emergency Department Report ---
Blank Doc - Documentation Documentation: 31-year-old male presents to the hospital psychosis and suicidal ideation. Vi aristides signs reviewed. Patient has been accepted and awaiting transport to psychiatric facility
[2021-10-14 20:44] VITALS: BP 123/75
[2021-10-14] MEDS: DOXEPIN 10 MG CAP PO SCH (21:51)
== END 2021-10-14 23:11 ==
LOC: ED 07:03
DX: R45.851 Suicidal ideations (principal); F20.9 Schizophrenia, unspecified; Z20.822 Contact with and (suspected) exposure to COVID-19; Z91.14 Patient's other noncompliance with medication regimen; F41.9 Anxiety disorder, unspecified; Z88.0 Allergy status to penicillin; Z79.899 Other long term (current) drug therapy
CPT/HCPCS: 36415; 80048; 80307; 81001; 85025; 99285; J0330; J3490; U0003; 80320; G0480

== ENCOUNTER 2022-03-21 10:52 | Emergency (ER) | payer SELFPAY ==
--- NOTE | 2022-03-21 12:59 | Emergency Department Report ---
<DIANE SINCLAIRMis - Last Filed: 03/21/22 12:57> ED Psych HPI - General Chief Complaint: Psych Stated Complaint: DEPRESSION Time Seen by Provider: 03/21/22 12:34 Source: patient Mode of arrival: Ambulatory Limitations: No Limitations - History of Present Illness Initial Comments: Patient is a 32-year-old male with history of schizophrenia presenting to ED with request for psychiatric evaluation. Patient states he has been under a lot of stress lately and recently lost his job. He endorses suicidal ideations. - Related Data Previous Rx's Medication Instructions Recorded Last Taken Type Amoxicillin [Amoxicillin TAB] 875 mg PO BID #20 tablet 10/21/16 Unknown Rx Ibuprofen [Motrin] 600 mg PO Q8H PRN #15 tablet 10/21/16 Unknown Rx Ondansetron [Zofran Odt] 4 mg PO Q8HR PRN #20 tab.rapdis 02/01/19 Unknown Rx Ketorolac [Toradol] 10 mg PO Q6H PRN #15 tablet 09/08/20 Unknown Rx methOCARBAMOL [Robaxin TAB] 750 mg PO Q8H PRN #20 tablet 09/08/20 Unknown Rx Sertraline [Zoloft] 25 mg PO QDAY #30 tab 04/18/21 Unknown Rx FLUoxetine [PROzac] 10 mg PO QDAY #30 tablet 04/26/21 Unknown Rx OLANzapine [ZyPREXA] 2.5 mg PO QDAY #30 tablet 04/26/21 Unknown Rx OLANZapine [Zyprexa] 5 mg PO QHS 30 Days #30 03/23/22 Unknown Rx Sertraline [Zoloft] 25 mg PO QDAY 30 Days #30 tab 03/23/22 Unknown Rx Allergies Allergy/AdvReac Type Severity Reaction Status Date / Time pineapple Allergy Swelling Verified 04/28/21 08:34 ED Review of Systems Comment: All other systems reviewed and negative Constitutional: denies: chills, fever Respiratory: denies: cough, shortness of breath, wheezing Cardiovascular: denies: chest pain, palpitations Endocrine: no symptoms reported Gastrointestinal: denies: abdominal pain, nausea, diarrhea Genitourinary: denies: urgency, dysuria Musculoskeletal: denies: back pain, joint swelling, arthralgia Skin: denies: rash, lesions Psychiatric: depression, suicidal thoughts. denies: auditory hallucinations, visual hallucinations, homicidal thoughts ED Past Medical Hx - Past Medical History Previous Medical History?: Yes Hx Psychiatric Treatment: Yes (Paronoid Schizophrenia, Anxiety) - Surgical History Past Surgical History?: No - Social History Smoking Status: Never Smoker Substance Use Type: None - Medications Home Medications: Home Medications Medication Instructions Recorded Confirmed Last Taken Type Amoxicillin [Amoxicillin TAB] 875 mg PO BID #20 tablet 10/21/16 Unknown Rx Ibuprofen [Motrin] 600 mg PO Q8H PRN #15 tablet 10/21/16 Unknown Rx Ondansetron [Zofran Odt] 4 mg PO Q8HR PRN #20 tab.rapdis 02/01/19 Unknown Rx Ketorolac [Toradol] 10 mg PO Q6H PRN #15 tablet 09/08/20 Unknown Rx methOCARBAMOL [Robaxin TAB] 750 mg PO Q8H PRN #20 tablet 09/08/20 Unknown Rx Sertraline [Zoloft] 25 mg PO QDAY #30 tab 04/18/21 Unknown Rx FLUoxetine [PROzac] 10 mg PO QDAY #30 tablet 04/26/21 Unknown Rx OLANzapine [ZyPREXA] 2.5 mg PO QDAY #30 tablet 04/26/21 Unknown Rx OLANZapine [Zyprexa] 5 mg PO QHS 30 Days #30 03/23/22 Unknown Rx Sertraline [Zoloft] 25 mg PO QDAY 30 Days #30 tab 03/23/22 Unknown Rx ED Physical Exam - General Limitations: No Limitations General appearance: alert, in no apparent distress - Head Head exam: Present: atraumatic, normocephalic - Neck Neck exam: Present: normal inspection - Respiratory Respiratory exam: Present: normal lung sounds bilaterally. Absent: respiratory distress - Cardiovascular Cardiovascular Exam: Present: regular rate, normal rhythm. Absent: systolic murmur, diastolic murmur, rubs, gallop - GI/Abdominal GI/Abdominal exam: Present: soft, normal bowel sounds - Rectal Rectal exam: Present: deferred - Neurological Exam Neurological exam: Present: alert, oriented X3, CN II-XII intact - Psychiatric Psychiatric exam: Present: normal affect, normal mood, suicidal ideation - Skin Skin exam: Present: warm, dry, intact, normal color ED Disposition Clinical Impression: Depression Disposition: 01 HOME / SELF CARE / HOMELESS Condition: Stable Instructions: Living With Depression Additional Instructions: Please return to the emergency room immediately if you experience any suicidal or homicidal ideation or hallucination. Prescriptions: OLANZapine [Zyprexa] 5 mg PO QHS 30 Days #30 Sertraline [Zoloft] 25 mg PO QDAY 30 Days #30 tab Referrals: PRIMARY CARE,MD [Primary Care Provider] - 3-5 Days <ONEIDA THOMASON - Last Filed: 03/23/22 11:45> ED Review of Systems ROS: Stated complaint: DEPRESSION Other details as noted in HPI ED Course Vital Signs 03/21/22 03/21/22 03/22/22 14:00 20:01 11:11 Temperature 97.9 F 97.5 F L 97.9 F Pulse Rate 81 82 79 Respiratory 18 18 18 Rate Blood Pressure 143/94 Blood Pressure 143/94 109/75 111/72 [Left] O2 Sat by Pulse 99 100 99 Oximetry 03/22/22 03/22/22 20:20 20:21 Temperature 98.1 F Pulse Rate 62 Respiratory 16 Rate Blood Pressure Blood Pressure 124/71 [Left] O2 Sat by Pulse 98 98 Oximetry ED Medical Decision Making - Lab Data Result diagrams: 03/21/22 12:48 03/21/22 12:48 - Medical Decision Making Dc 1013 Continue Olanzapine 5mg po BID Sitter: Defer to primary Medical: Per primary Disposition: Do not recommend acute psychiatric inpatient treatment. Sander Operator will provide patient with psychiatric outpatient resources. Will sign off. Thank you for this consult. Case staffed with Dr. Mcwilliams 03/23 Psych's recommendation. I have also seen the patient myself and patient denies any suicidal or homicidal ideation also denies any hallucination. However cannot discharge patient on olanzapine 5 mg p.o. twice daily. Critical care attestation.: If time is entered above; I have spent that time in minutes in the direct care of this critically ill patient, excluding procedure time. ED Disposition Is pt being admited?: No Does the pt Need Aspirin: No Time of Disposition: 11:45
[2022-03-21 13:13] LABS: Basophils % (Auto) 0.4 % (0.0-1.8); Hematocrit 46.6 % (35.5-45.6); Hemoglobin 15.5 gm/dl (11.8-15.2); Lymphocytes # (Auto) 1.3 K/mm3 (1.2-5.4); Lymphocytes % (Auto) 26.9 % (13.4-35.0); Mean Corpuscular HGB Conc 33 % (32-34); Mean Corpuscular Volume 96 fl (84-94); Monocytes # (Auto) 0.4 K/mm3 (0.0-0.8); Monocytes % (Auto) 7.5 % (0.0-7.3); Platelet Count 321 K/mm3 (140-440); Red Blood Count 4.87 M/mm3 (3.65-5.03); Red Cell Distribution Width 12.1 % (13.2-15.2)
[2022-03-21 13:35] LABS: Alanine Aminotransferase 16 units/L (7-56); BUN/Creatinine Ratio 14; Blood Urea Nitrogen 11 mg/dL (9-20); Calcium 10.1 mg/dL (8.4-10.2); Hemolysis Index 11
[2022-03-22 03:06] LABS: Bilirubin,Urine NEG (Negative); Blood,Urine NEG (Negative); Color,Urine Yellow (Yellow); Protein,Urine <15 mg/dL mg/dL (Negative); WBC,Urine < 1.0 /HPF (0.0-6.0)
[2022-03-22 03:10] LABS: RBC,Urine < 1.0 /HPF (0.0-6.0)
[2022-03-22 03:15] LABS: Amphetamine Screen,Urine PRESUMPTIVE NEGATIVE; Benzodiazepines Screen,Urine PRESUMPTIVE NEGATIVE; Cannabinoid Screen,Urine PRESUMPTIVE POSITIVE; Cocaine Screen,Urine PRESUMPTIVE NEGATIVE; Methadone Screen,Urine PRESUMPTIVE NEGATIVE; Opiate Screen,Urine PRESUMPTIVE NEGATIVE
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
--- NOTE | 2022-03-22 12:01 | Event Note ---
Date: 03/22/22 NO SIGNIFICANT EVENT OVERNIGHT AND PATIENT REMAINS HEMODYNAMICALLY STABLE AND AFEBRILE. PENDING [facility] FOR INPATIENT PSYCH REFERRAL. I HAVE PLACED COVID TEST. - THOMASON
--- NOTE | 2022-03-23 09:51 | Progress Note ---
<VERENICE MCKEON - Last Filed: 03/23/22 09:57> Subjective - Reason for Consult Consult date: 03/23/22 Reason for consult: suicidal ideation - Chief Complaint Chief complaint: The patient was seen today. The patient states he feels better. He reports sleep and appetite as good. He denies any current suicidal/homicidal ideation and denies hallucinations. REVIEW OF SYSTEMS Constitutional: Negative for weight loss ENT: Negative for stridor Respiratory: Negative for cough or hemoptysis All other systems reviewed and are negative MENTAL STATUS EXAMINATION General Appearance: Dressed appropriately, Behavior: calm and cooperative, odd Mood: Ok Affect and affective range: congruent with mood Thought Process: Goal directed Speech: Normal Thought content:None Suicidal Ideation: Denies Homicidal Ideation: Denies Hallucinations: Denies Delusions: None Insight and Judgment:Limited insight and judgment Memory: Limited Attention: Distracted Orientation: Alert, oriented Assessment Schizophrenia Treatment Plan Dc 1013 Continue Olanzapine 5mg po BID Sitter: Defer to primary Medical: Per primary Disposition: Do not recommend acute psychiatric inpatient treatment. [employer] will provide patient with psychiatric outpatient resources. Will sign off. Thank you for this consult. Case staffed with Dr. Mcwilliams Medications and Allergies Mental Status Exam - Vital signs Last Vital Signs Temp 98.1 F 03/22/22 20:21 Pulse 62 03/22/22 20:21 Resp 16 03/22/22 20:21 BP 124/71 03/22/22 20:21 Pulse Ox 98 03/22/22 20:21 <ONEIDA THOMASON - Last Filed: 03/23/22 11:53> Mental Status Exam - Vital signs Last Vital Signs Temp 98.1 F 03/22/22 20:21 Pulse 62 03/22/22 20:21 Resp 16 03/22/22 20:21 BP 124/71 03/22/22 20:21 Pulse Ox 98 03/22/22 20:21
[2022-03-23 12:29] VITALS: BP 143/86
== END 2022-03-23 12:30 | disposition home or self-care (01) ==
LOC: ED 10:52
DX: F32.A Depression, unspecified (principal); Z91.018 Allergy to other foods; Z20.822 Contact with and (suspected) exposure to COVID-19; Z79.899 Other long term (current) drug therapy
CPT/HCPCS: 36415; 80053; 80307; 81001; 84443; 85025; 99284; U0003; 80320; G0480